=== PATIENT | male | born 1950 | race Caucasian/White ===

== ENCOUNTER 2019-11-29 20:09 | Observation (INO) | payer MEDICARE, OTHER, SELFPAY ==
[2019-11-29] VITALS (13 sets, daily range): BP systolic 90–97; BP diastolic 59–68; PULSE 62–75; RESP 12–22; TEMP 36.7; O2SAT 100
--- NOTE | ~2019-11-29 | XR_ITS ---
XR chest 2V DATE: 11/29/2019 21:30 INDICATION: Transient alteration of awareness. Hypotension. TECHNIQUE: AP and lateral views on 11/29/2019 at 2128 hours COMPARISON: 04/30/2019 AP chest FINDINGS: Status post sternotomy/CABG. Heart size is within normal limits. No pulmonary infiltrate or consolidation, pleural effusion or pulmonary vascular congestion or pneumo thorax. Some right-sided pleural calcifications are again noted. Diffuse osteopenia. IMPRESSION: Status post sternotomy/CABG No active cardiopulmonary disease or significant change since 04/30/2019 Reviewed, dictated and finalized at location A. [facility]CHITECT
--- NOTE | 2019-11-29 20:21 | ECG_ITS ---
Measurements Intervals [place] Rate: 68 P: 75 KS: 193 QRS: 40 QRSD: 104 T: 81 QT: 405 QTc: 433 Interpretive Statements SINUS RHYTHM ANTEROSEPTAL INFARCT, AGE INDETERMINATE BORDERLINE T WAVE ABNORMALITY- INF/LAT LEADS BASELINE ARTIFACT- I, II, V4-V5 ABNORMAL ECG Electronically Signed On 11-30-2019 8:08:04 PC MAINTENANCE TECHNICIAN by Miakel Lim D.O.
[2019-11-29 20:41] LABS: Basophils Absolute Auto 0.1 K/mm3 (0.0-0.1); Basophils Percent Auto 0.8 % (0.2-1.2); Eosinophils Percent Auto 0.5 % (0-4.4); Hemoglobin 11.1 g/dL (14.0-18.0); Immature Granulocyte Absolute 0.04 K/mm3 (0.00-0.031); Immature Granulocyte Percent A 0.5 % (0-0.5); Lymphocytes Absolute Auto 1.36 K/mm3 (0.9-3.2); Lymphocytes Percent Auto 17.1 % (18.3-44.2); Mean Corpuscular HGB Conc 30.8 g/dl (32-36); Mean Corpuscular Hemoglobin 26.4 pg (26-34); Mean Corpuscular Volume 85.5 fl (80-100); Mean Platelet Volume 9.9 fl (7.4-10.4); Monocytes Absolute Auto 0.5 K/mm3 (0.1-0.6); Monocytes Percent Auto 5.8 % (2.6-8.5); Neutrophils Percent Auto 75.3 % (45.5-73.1); Platelet Count Result 478 k/mm3 (150-375); Red Blood Count 4.21 M/mm3 (4.6-6.20); Red Cell Distribution Width 15.3 % (11.5-14.5)
[2019-11-29 20:52] LABS: Alanine Aminotransferase 16 U/L (4-50); Alkaline Phosphatase 90 U/L (38-126); Aspartate Amino Transferase 20 U/L (17-59); Bilirubin,Total 0.3 mg/dL (0.2-1.3); Blood Urea Nitrogen 27 mg/dL (9-20); Calcium 9.8 mg/dL (8.4-10.2); Carbon Dioxide 25 mmol/L (22-30); Chloride 98 mmol/L (98-107); Estimated Glomerular Filt Rate > 60; Glucose 194 mg/dL (75-110); Potassium 5.9 mmol/L (3.4-5.0); Sodium 134 mmol/L (137-145)
--- NOTE | 2019-11-29 20:53 | ED.RECABL ---
HPI - Recheck/Abnormal Lab/Rx General Chief Complaint: Altered Mental Status Stated Complaint: AMS Time Seen by Provider: 11/29/19 20:47 Source: patient, family (daughter) and RN notes reviewed Mode of arrival: EMS Limitations: dementia History of Present Illness HPI narrative: A 69 y/o male presents to the ED via EMS from his AL d/t a low BP beginning today. Per daughter states that her family member saw the pt today and said that he was acting more lethargic, so they called her to have the pt checked up on. She reports that she then called the AL who told her that the pt's BP was 70/40, so they called EMS to have the pt brought here to be evaluated. She notes that the pt has NPH and that the pt is at his baseline now. She also notes that the pt was recently released from [place] d/t a toe infection.The pt states that he was hungry today so he didn't eat. He denies any cough, SOB, CP, ABD pain, N/V/D, back pain, or neck pain. MD complaint: abnormal lab Initial visit (ago): hour(s) (today) Returns today for: called because of abnormal lab/test (low BP) Description of abnormal result: Low BP of 70/40. Context: other (checked bc of increased lethargy) Associated symptoms: other (lethargy and decreased appetite) Related Data Allergies Allergy/AdvReac Type Severity Reaction Status Date / Time No Known Allergies Allergy Unverified 12/10/18 03:13 Review of Systems Review of Systems: Narrative: CONSTITUTIONAL: Reports increased lethargy and decreased appetite. CARDIOVASCULAR: Denies chest pain. Reports low BP of 70/40. RESPIRATORY: Denies cough or dyspnea. GASTROINTESTINAL: Denies abdominal pain, nausea, vomiting, or diarrhea. MUSCULOSKELETAL: Denies back pain or neck pain. All systems reviewed & are unremarkable except as noted in HPI and below [facility] Past Medical History Medical History (Updated 11/30/19 @ 00:25 by Josselyn Cordova MD) Anxiety Arthritis Bulging discs CAD (coronary artery disease) CHF (congestive heart failure) Dementia Depression Diverticulitis DM (diabetes mellitus) GERD (gastroesophageal reflux disease) H/O: HTN (hypertension) History of angina History of kidney stones Hx: UTI (urinary tract infection) Hypercholesteremia Hypothyroid Melanoma Peripheral neuropathy Prostate CA PVD (peripheral vascular disease) Sleep apnea Surgical History Surgical History (Updated 11/29/19 @ 23:06 by Nathan Ash) H/O prostatectomy History of skin graft Hx of CABG Hx of cardiac cath Hx of heart artery stent Social History Social History (Updated 11/29/19 @ 23:07 by Nathan Ash) Smoking packs per day: 0.5 Smoking cigarettes per day: 10.0 Smoking status: Current every day smoker Second hand tobacco smoke exposure: Yes Comments PCP: Dr. Mancera. Exam Narrative: Exam Narrative: GENERAL: Well-appearing, thin, and in no acute distress. HEAD: Normocephalic, atraumatic. EYES: PERRLA and EOMI. ENT: Nares clear, no rhinorrhea or epistaxis. Mucous membranes dry NECK: Supple. CHEST: Clear to auscultation. No respiratory distress. HEART: Regular rate and rhythm. No murmur heard. Normal peripheral pulses. ABDOMEN: Soft, nontender, nondistended, normal active bowel sounds. EXTREMITIES: Normal range of motion. No edema. Dark eschar to lt 5th small toe mild erythema warm and well perfused. DP pulses 2+. SKIN: Warm, dry, no rash. NEURO: No focal deficits. Alert and oriented X2 to persona and place. Course Course Emergency Course: Patient presented for evaluation of hypotension from long-term care facility. Per daughter, patient is acting at baseline. She states he has had decreased oral intake since yesterday. She states these are issues he struggles with chronically. On exam, the patient is alert and oriented at baseline. No focal deficits. He denies any pain. Patient when questioned about why he does not eat or drink much, states he just does not have an appetite for it. He denies any chest or abdominal pain.
[2019-11-29 21:57] LABS: Lactic Acid Reflex 1.3 mmol/L (0.7-2.1)
[2019-11-29] MEDS: SODIUM CHLORIDE 0.9% IV 1,000 ML 999 ML IV CONT (22:13)
[2019-11-29 22:38] LABS: Add Urine Microscopic? YES; Appearance Urine Cloudy (Clear); Bacteria Urine Trace /hpf; Bilirubin Urine Negative (Negative); Color Urine Yellow (Yellow); Glucose Urine UA 1+ mg/dL (Negative); Hyaline Casts Urine 30-49 /lpf; Ketones Urine 1+ mg/dL (Negative); Leukocyte Esterase Ur 2+ LEU/UL (Negative); Mucus Urine Moderate /lpf; Nitrate Urine Negative (Negative); Protein Urine 2+ mg/dL (Negative); Specific Grav Ur 1.023 (1.001-1.035); Squamous Epithelial Cell Urine Rare /hpf (Few); Urobilinogen Urine Negative mg/dL (<2.0); WBC Urine >75 /hpf
[2019-11-29 22:39] LABS: Blood Urine Negative (Negative)
--- NOTE | 2019-11-29 23:08 | PC.NURSE ---
Yoselin, patient's nurse at [facility] calls to get patient update. This nurse informs her of patient status. Yoselin requests to be notified on when patient is discharged or admitted. This nurse informed her that she will be notified when the decision is made.
[2019-11-30] VITALS (8 sets, daily range): BP systolic 98–167; BP diastolic 61–84; PULSE 60–75; RESP 12–16; TEMP 36.2–36.7; O2SAT 97–100; BMI 23.8
--- NOTE | 2019-11-30 00:52 | PM.IMHP ---
H&P: HPI History of Present Illness Chief complaint: Not eating/drinking, confused Narrative: This is a pleasant 69-year-old diabetic male with known history of normal pressure hydrocephalus and chronic suprapubic urinary catheter who is well known to our hospitalist service for multiple hospitalizations and who [facility] the [facility] after being found to be hypotensive with a blood pressure of 70/40 mm Hg and poorly responsive at that time. The patient was just discharged back to the [facility] from [facility] where he was treated for 10 days after he was found to have a necrotic small toe of his left foot. At that time he was found to have a urinary tract infection and received 10 days of IV antibiotics and also was found to have an occluded femoral stent which was replaced. Apparently the patient has not been eating or drinking much today and his daughter states that he is well known to not eat or drink much unless someone is constantly pushing him to eat and drink. She remarks that the nursing staff at the [facility] on the weekends do not pay much attention to him and do not urged him to eat or drink. The patient himself is pleasantly demented and denies any significant symptoms. His daughter remarks that he is currently at his baseline. She did not think that his urine smelled foul today or looked any different than it normally does. The patient was evaluated emergency room this evening and found to have a grossly abnormal urinalysis which is to be expected given that he has a chronic indwelling suprapubic catheter. There is no history of fevers or chills recently. The patient's daughter remarks that his small toe of his left foot appears to be improving with wound care. We been asked to admit the patient to the hospital for acute dehydration and mild hyperkalemia. The patient is currently at his baseline. Review of Systems Review of Systems: All systems reviewed & are unremarkable except as noted in HPI and below [facility] Past Medical History Medical History Anxiety Arthritis Bulging discs CAD (coronary artery disease) CHF (congestive heart failure) Dementia Depression Diverticulitis DM (diabetes mellitus) GERD (gastroesophageal reflux disease) H/O: HTN (hypertension) History of angina History of kidney stones Hx: UTI (urinary tract infection) Hypercholesteremia Hypothyroid Melanoma Peripheral neuropathy Prostate CA PVD (peripheral vascular disease) Sleep apnea Surgical History Surgical History H/O prostatectomy History of skin graft Hx of CABG Hx of cardiac cath Hx of heart artery stent Social History Social History Smoking packs per day: 0.5 Smoking cigarettes per day: 10.0 Smoking status: Former smoker Second hand tobacco smoke exposure: Yes Alcohol intake: unknown Substance use: unknown Gender identity (if verbalized by the patient): Male Spiritual care concerns: No Agree to blood products: No Meds Home Medications and Allergies Home Medications Medication Instructions Recorded Confirmed Type Lactobacillus acidophilus 2,000 mmu cells PO BID 11/30/19 11/30/19 History [Acidophilus] alprazolam 0.25 mg PO HS 11/30/19 11/30/19 History amlodipine 10 mg PO DAILY 11/30/19 11/30/19 History clopidogrel 75 mg PO DAILY 11/30/19 11/30/19 History gabapentin 400 mg PO TID 11/30/19 11/30/19 History metoprolol tartrate 12.5 mg PO DAILY 11/30/19 11/30/19 History polyethylene glycol 3350 [Miralax] 17 g PO DAILY 11/30/19 11/30/19 History tamsulosin [Flomax] 0.4 mg PO DAILY 11/30/19 11/30/19 History white petrolatum [Aloe [place]] 1 applic TOPICAL DAILY 11/30/19 11/30/19 History Allergies Allergy/AdvReac Type Severity Reaction Status Date / Time No Known Allergies Allergy Unverified 12/10/18 0
--- NOTE | 2019-11-30 02:10 | PC.NURSE ---
This nurse calls Yoselin at [facility] to inform Yoselin, patient's nurse that he is being admitted for dehydration and UTI.
[2019-11-30] MEDS: SODIUM CHLORIDE 0.9% IV 1,000 ML 125 ML IV CONT ×2 (03:16→14:13)
--- NOTE | 2019-11-30 03:36 | ADMGEN ---
This patient, Irineo Berrios I, was admitted to [facility] Surg Room 303-01. Patient/family oriented to hospital policies and general routines including ID bracelet, bed and alarms, visiting hours, pain management, procedures, bathroom and other care routines, personal items, smoking policy, room service/diet, and visiting hours. Valuables list has been completed. Information on how to activate the Rapid Response Team has been discussed. Patient/Family are encouraged to report perceived risks to care and to ask questions if they do not understand what they are told or what they should do.
[2019-11-30 03:50] LABS: Basophils Absolute Auto 0.1 K/mm3 (0.0-0.1); Basophils Percent Auto 1.4 % (0.2-1.2); Eosinophils Absolute Auto 0.1 K/mm3 (0-0.3); Eosinophils Percent Auto 2.4 % (0-4.4); Hematocrit 32.2 % (42.0-52.0); Hemoglobin 10.1 g/dL (14.0-18.0); Immature Granulocyte Absolute 0.01 K/mm3 (0.00-0.031); Immature Granulocyte Percent A 0.2 % (0-0.5); Lymphocytes Absolute Auto 1.98 K/mm3 (0.9-3.2); Lymphocytes Percent Auto 33.6 % (18.3-44.2); Mean Corpuscular HGB Conc 31.4 g/dl (32-36); Mean Corpuscular Hemoglobin 26.6 pg (26-34); Mean Corpuscular Volume 84.7 fl (80-100); Mean Platelet Volume 9.6 fl (7.4-10.4); Monocytes Absolute Auto 0.6 K/mm3 (0.1-0.6); Monocytes Percent Auto 9.7 % (2.6-8.5); Neutrophils Absolute Auto 3.1 K/mm3 (1.3-6.7); Neutrophils Percent Auto 52.7 % (45.5-73.1); Platelet Count Result 431 k/mm3 (150-375); Red Cell Distribution Width 15.1 % (11.5-14.5); White Blood Count 5.9 K/mm3 (4.5-10.0)
[2019-11-30 04:00] LABS: Blood Urea Nitrogen 26 mg/dL (9-20); Calcium 9.3 mg/dL (8.4-10.2); Carbon Dioxide 26 mmol/L (22-30); Chloride 99 mmol/L (98-107); Estimated Glomerular Filt Rate > 60; Glucose 120 mg/dL (75-110); Potassium 4.5 mmol/L (3.4-5.0); Sodium 137 mmol/L (137-145)
[2019-11-30] MEDS: ENOXAPARIN 40 MG/0.4 ML SYRINGE SUB-Q (09:01)
[2019-11-30 09:16] LABS: Glucose Point of Care 129 (65-105)
--- NOTE | 2019-11-30 11:00 | PM.IMPN ---
Progress Note: A&P Assessment and Plan (1) Acute dehydration: Code(s): E86.0 - Dehydration Status: Acute Assessment and Plan: Patient admitted for observation for dehydration. Blood pressure is improved. Potassium has normalized. Renal functions unchanged. Suspect this is related to his poor oral intake. Cannot exclude infectious process however. Continue IV fluids for now. (2) Acute hyperkalemia: Code(s): E87.5 - Hyperkalemia Status: Acute Assessment and Plan: The patient was treated with lasix, sodium bicarbonate, dextrose and insulin in the ER. Repeat potassium level normal now. Continue to monitor. (3) Abnormal urinalysis: Code(s): R82.90 - Unspecified abnormal findings in urine Status: Acute Assessment and Plan: UA noted. the patient was just treated for the past 10 days with IV antibiotics for a complicated UTI at [facility]. He received a dose of Ceftriaxone in the ER on admission. Urine culture pending. Antibiotics have not been continued. Follow up culture. 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 Wound care consult ordered. (5) Chronic anemia: Code(s): D64.9 - Anemia, unspecified Status: Acute Assessment and Plan: Hgb 11 on admission. No signs of acute blood loss. Hgb dropped to 10 with IVF. Continue to monitor. (6) DM (diabetes mellitus): Qualifiers: Diabetes mellitus complication detail: with peripheral angiopathy with gangrene Diabetes mellitus complication status: with circulatory complication Diabetes mellitus longterm insulin use: without bed bug exterminator use Diabetes mellitus type: type 2 Qualified Code(s): E11.52 - Type 2 diabetes mellitus with diabetic peripheral angiopathy with gangrene Code(s): E11.9 - Type 2 diabetes mellitus without complications Status: Chronic Assessment and Plan: Glucose reviewed on 11/30/2019. Glucose elevated on admission but better controlled today. Continue Accu-Cheks and sliding scale coverage. Hypoglycemia protocol available as needed. (7) Dementia: Qualifiers: Dementia behavioral disturbance: without behavioral disturbance Dementia type: unspecified type Qualified Code(s): F03.90 - Unspecified dementia without behavioral disturbance Code(s): F03.90 - Unspecified dementia without behavioral disturbance Status: Chronic Assessment and Plan: Stable. The patient is oriented to name only. Currently at his baseline. (8) H/O: HTN (hypertension): Code(s): Z86.79 - Personal history of other diseases of the circulatory system Status: Chronic Assessment and Plan: The patient was relatively hypotensive on admsision which is has been fluid responsive. home anithypertensives on hold. BP better. Add back beta aman. (9) Suprapubic catheter: Code(s): Z93.59 - Other cystostomy status Status: Chronic Assessment and Plan: Chronic. As above. Contiue routine care. Subjective Date/time seen: 11/30/19 11:00 Interval history: 69yo male here for confusion and HoTN. Chart reviewed. Patient is alert but confused and unable to provide history. He does states that his only complaint is tingling in his fingers that he has had ?all the time?. He cannot elaborate. No other complaints. Review of Systems Review of Systems: ROS unobtainable: unobtainable due to mental status Exam Narrative: Exam Narrative: AF Gen - NARD lying flat in bed Chest - CTA bilaterally, nml RR CV - RRR S1/S2 with 2/6 systoolic murmur Abd - Soft, scaphoid, +BS, NT. Slight dark pink area around SP site. SP cath secured with clear yellow urine in the bag Ext - No pedal edema Neuro - Alert but confused. oriented to
[2019-11-30 12:53] LABS: Glucose Point of Care 158 (65-105)
[2019-11-30] MEDS: METOPROLOL TARTRATE 12.5 MG TABLET PO (14:14)
[2019-11-30] MEDS: TAMSULOSIN HCL 0.4 MG CAPSULE PO (14:14)
[2019-11-30] MEDS: polyethylene glycoL 3350 17 GM POWD.PACK PO (14:14)
[2019-11-30] MEDS: CLOPIDOGREL BISULFATE 75 MG TABLET PO (14:15)
[2019-11-30] MEDS: GABAPENTIN 400 MG CAPSULE PO ×2 (14:15→20:10)
[2019-11-30] MEDS: ACIDOPHILUS/BULGARICUS CHEWABLE TABLET 1 TABLET PO (17:23)
[2019-11-30 18:05] LABS: Glucose Point of Care 167 (65-105)
--- NOTE | 2019-11-30 19:55 | PC.NURSE ---
Glenna, patient's daughter, asking about patient's pain medications. Went over med list that was received from [facility]. Glenna states med list is not complete and missing morphine and oxycodone. Called [facility]. Talked to Yoselin and requested new med list.
[2019-11-30] MEDS: ALPRAZOLAM 0.25 MG TABLET PO (20:09)
[2019-11-30] MEDS: ACETAMINOPHEN 325 MG TABLET 650 MG PO (20:09)
[2019-11-30 20:55] LABS: Glucose Point of Care 174 (65-105)
--- NOTE | 2019-12-01 00:57 | PC.NURSE ---
Called [facility] and spoke to Yoselin as this nurse has not received a faxed med list. Facility states they were unable to get it to fax. Requested Yoselin to go through med list for patient over the phone. Multiple medications not on original med list. Corrected home med list. Copy of handwritten med list from phone conversation placed in chart.
[2019-12-01 06:00] VITALS: BP 170/69; PULSE 66; RESP 16; TEMP 36.3; O2SAT 99
[2019-12-01] MEDS: ACETAMINOPHEN 325 MG TABLET 650 MG PO (06:46)
[2019-12-01] MEDS: SODIUM CHLORIDE 0.9% IV 1,000 ML 125 ML IV CONT (06:47)
[2019-12-01] MEDS: GABAPENTIN 400 MG CAPSULE PO ×2 (06:47→16:08)
[2019-12-01 09:03] VITALS: BP 110/63; PULSE 57; RESP 18; O2SAT 100
[2019-12-01] MEDS: ACIDOPHILUS/BULGARICUS CHEWABLE TABLET 1 TABLET PO ×2 (09:08→16:09)
[2019-12-01] MEDS: ASPIRIN 81 MG ENTERIC TABLET PO (09:08)
[2019-12-01] MEDS: ASCORBIC ACID 500 MG TABLET PO (09:08)
[2019-12-01] MEDS: ERGOCALCIFEROL 50,000 UNIT CAPSULE 50000 UNITS PO (09:09)
[2019-12-01] MEDS: CLOPIDOGREL BISULFATE 75 MG TABLET PO (09:09)
[2019-12-01] MEDS: ENOXAPARIN 40 MG/0.4 ML SYRINGE SUB-Q (09:09)
[2019-12-01] MEDS: lisinopriL 10 MG TABLET PO (09:10)
[2019-12-01] MEDS: ISOSORBIDE MONONITRATE 30 MG TAB.ER.24H PO (09:10)
[2019-12-01 09:11] VITALS: PULSE 57
[2019-12-01] MEDS: METOPROLOL TARTRATE 12.5 MG TABLET PO (09:11)
[2019-12-01] MEDS: polyethylene glycoL 3350 17 GM POWD.PACK PO (09:12)
[2019-12-01] MEDS: TAMSULOSIN HCL 0.4 MG CAPSULE PO (09:12)
[2019-12-01] MEDS: MULTIVITAMINS /C LUTEIN (CENTRUM SILVER) TABLET *BKC 1 TAB PO (09:12)
[2019-12-01 09:25] LABS: Glucose Point of Care 124 (65-105)
[2019-12-01] MEDS: SODIUM CHLORIDE 0.9% IV 1,000 ML 70 ML IV CONT (09:27)
[2019-12-01 12:04] VITALS: BMI 23.8
[2019-12-01 12:47] LABS: Glucose Point of Care 161 (65-105)
[2019-12-01 14:00] VITALS: BP 106/63; PULSE 67; RESP 16; TEMP 36.1; O2SAT 100
--- NOTE | 2019-12-01 16:38 | PM.DS ---
DS: Diagnosis Admitting Diagnosis Admitting Diagnosis: Dehydration Discharge Diagnosis (1) Acute dehydration: Code(s): E86.0 - Dehydration Status: Acute Assessment and Plan: Patient admitted for observation for dehydration. Blood pressure 90/59 on admission but improved with IV fluids. The dehydration may be related to his poor oral intake. He seems to do well when he is fed with intake 50-100%. No obvious infectious process. (2) Acute hyperkalemia: Code(s): E87.5 - Hyperkalemia Status: Acute Assessment and Plan: Potassium 5.9 on admission. Probably related to the Bactrim. The patient was treated with lasix, sodium bicarbonate, dextrose and insulin in the ER. Repeat potassium level normallized. Lisinopril resumed given the DM and proteinuria. (3) Abnormal urinalysis: Code(s): R82.90 - Unspecified abnormal findings in urine Status: Acute Assessment and Plan: UA noted. the patient was just treated for the past 10 days with IV antibiotics for a complicated UTI at [facility]. Currently on Bactrim. He received a dose of Ceftriaxone in the ER on admission here. Urine culture negative. 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 We continued wound care. (5) Chronic anemia: Code(s): D64.9 - Anemia, unspecified Status: Acute Assessment and Plan: Hgb 11 on admission. No signs of acute blood loss. Hgb dropped to 10 with IVF. (6) DM (diabetes mellitus): Qualifiers: Diabetes mellitus complication detail: with peripheral angiopathy with gangrene Diabetes mellitus complication status: with circulatory complication Diabetes mellitus detention insulin use: without predatory animal exterminator use Diabetes mellitus type: type 2 Qualified Code(s): E11.52 - Type 2 diabetes mellitus with diabetic peripheral angiopathy with gangrene Code(s): E11.9 - Type 2 diabetes mellitus without complications Status: Chronic Assessment and Plan: Glucose reviewed serially. Glucose elevated on admission but became better controlled. He was on Accu-Cheks and sliding scale coverage. Hypoglycemia protocol available as needed. (7) Dementia: Qualifiers: Dementia behavioral disturbance: without behavioral disturbance Dementia type: unspecified type Qualified Code(s): F03.90 - Unspecified dementia without behavioral disturbance Code(s): F03.90 - Unspecified dementia without behavioral disturbance Status: Chronic Assessment and Plan: Stable. The patient is oriented to name only. Currently at his baseline. (8) H/O: HTN (hypertension): Code(s): Z86.79 - Personal history of other diseases of the circulatory system Status: Chronic Assessment and Plan: The patient was relatively hypotensive on admission which was fluid responsive. Home anithypertensives were held and slowly resumed as blood pressure tolerated. (9) Suprapubic catheter: Code(s): Z93.59 - Other cystostomy status Status: Chronic Assessment and Plan: Chronic. As above. Contiue routine care. DS: Summary Hospital Course Reason for hospitalization: 69yo male here for confusion and hypotension. Please see H&P for details Hospital Course: As above Time Spent with Patient Time attestation: Total time spent providing and/or coordinating discharge services:34 minutes Time spent: Greater than 30 minutes Exam Narrative: Exam Narrative: Gen - NARD lying flat in bed Chest - few basilar rhonchi o/w clear CV - RRR S1/S2 Abd - Soft, scaphoid, +BS, NT. SP cath secured. Ext - No pedal edema Neuro - Alert but confused. Psych - pleasant and cooperative Skin - left 5th dry necrosis; left lateral foot and heel dried wounds but no dinora
[2019-12-01 17:29] LABS: Glucose Point of Care 178 (65-105)
== END 2019-12-01 18:00 ==
LOC: ANHED 11-30 00:25 → ANH3MEDSUR 11-30 00:57
PROVIDERS: Emergency Medicine; Admitting Provider Family Medicine; Emergency Provider Emergency Medicine; PCP Family Medicine; Visit Provider Internal Medicine
DX: E86.0 Dehydration (principal); E87.5 Hyperkalemia; R82.90 Unspecified abnormal findings in urine; E11.52 Type 2 diabetes mellitus with diabetic peripheral angiopathy with gangrene; I96 Gangrene, not elsewhere classified; E11.42 Type 2 diabetes mellitus with diabetic polyneuropathy; D64.9 Anemia, unspecified; F03.90 Unspecified dementia, unspecified severity, without behavioral disturbance, psychotic disturbance, mood disturbance, and anxiety; I11.0 Hypertensive heart disease with heart failure; I50.9 Heart failure, unspecified; I95.9 Hypotension, unspecified; I25.10 Atherosclerotic heart disease of native coronary artery without angina pectoris; K21.9 Gastro-esophageal reflux disease without esophagitis; G91.2 (Idiopathic) normal pressure hydrocephalus; E78.00 Pure hypercholesterolemia, unspecified; E03.9 Hypothyroidism, unspecified; Z85.46 Personal history of malignant neoplasm of prostate; Z85.820 Personal history of malignant melanoma of skin; Z87.440 Personal history of urinary (tract) infections; Z87.891 Personal history of nicotine dependence; Z93.59 Other cystostomy status; Z95.1 Presence of aortocoronary bypass graft; Z95.5 Presence of coronary angioplasty implant and graft
CPT/HCPCS: 36415; 71046; 80048; 80053; 81001; 83605; 85025; 87081; 87086; 93005; 96361; 96365; 96372; 99285; A9270; G0378; J0696; J1650; J7030

== ENCOUNTER 2020-01-15 09:26 | Inpatient (IN) | payer MEDICARE, SELFPAY ==
[2020-01-15] VITALS (13 sets, daily range): BP systolic 125–168; BP diastolic 45–86; PULSE 81–106; RESP 15–24; TEMP 36.3–37.3; O2SAT 97–100
--- NOTE | ~2020-01-15 | XR_ITS ---
EXAMINATION: XR fluoroscopy no charge DATE: 01/15/2020 16:35 INDICATION: Hematuria. TECHNIQUE: A single intraoperative fluoroscopic view of the pelvis was obtained. I was not present. F luoroscopy exposure time was 34 seconds. COMPARISON: CT abdomen and pelvis 01/15/2020 FINDINGS: The single image demonstrates a catheter and wire in the bladder. Vascular calcifications o verlie the pelvis. IMPRESSION: 1. No urolithiasis. Reviewed, dictated and finalized at location A. IMPRESSION: 1. No urolithiasis.
--- NOTE | ~2020-01-15 | US_ITS ---
EXAMINATION: US renal BI DATE: 01/16/2020 11:32 INDICATION: Hydronephrosis TECHNIQUE: Multiple grayscale and Doppler ultrasound images of the kidneys were obtained. COMPARISON: None. FINDINGS: The right kidney measures 11.2 x 6.4 cm. The left kidney measures 11.1 x 5.3 x 6.5 cm. The kidneys demonstrate normal parenchymal echogenicity. There is no hydronephrosis. The bladder is decom pressed by a Fuentes catheter. IMPRESSION: 1. Normal kidneys without hydronephrosis. Decompressed bladder. Reviewed, dictated and finalized at location B.
--- NOTE | ~2020-01-15 | CT_ITS ---
EXAMINATION: CT abdomen pelvis wo con DATE: 01/15/2020 11:09 INDICATION: Bleeding from suprapubic catheter site. TECHNIQUE: Computed tomography (CT) of the abdomen and pelvis was performed without intravenous contr ast. Automated exposure control and iterative reconstruction technique were employed. The dose-length product was 788.53 mGy-cm. COMPARISON: 12/10/2018 FINDINGS: Round atelectasis to the periphery of the right lower lobe where there is a likely chronic small exud ative pleural effusion with peripheral partially calcified pleural thickening involving both the konstantin etal and visceral pleura. Additional mild scarring at the lingula. Left lower lobe pneumatocele. Bord hal heart size. Atherosclerotic coronary artery calcifications with change of prior median sternot arturo and coronary artery bypass grafting. Aortic valve and mitral annular calcification. No pericardia l effusion. Liver, gallbladder, pancreas and bilateral adrenal glands are normal. A few small splenic calcificati ons consistent with old granulomatous disease. 8 mm parapelvic cyst at the upper pole of the left kid catie. Large amount of stool scattered throughout the colon which could be seen with constipation. Scat tered diverticula predominantly along the sigmoid colon without adjacent inflammatory change to sugge st acute diverticulitis. No bowel obstruction. Normal appendix. There is extensive calcified atherosc lerosis of the aorta and many of the other arteries. Again seen is a mildly enlarged 12 x 12 mm left internal iliac chain lymph node. No other pathologically enlarged abdominal or pelvic lymphadenopathy . Mild to moderate degenerative skeletal changes in the spine and pelvis. Age-indeterminate mild supe rior endplate compression fracture along the right side of the L4 vertebral body. New suprapubic Fuentes catheter within the mildly distended bladder. Again seen is heterogeneous high a ttenuation material within the bladder lumen consistent with clot. Moderate bilateral hydroureteronep hrosis which extends to the bladder with no evident obstructing urolithiasis. Persistent mild bilater al perinephric stranding. There is additional increased extraperitoneal edema in the pelvis surroundi ng the bladder and rectum. Cannot exclude a minimal amount of ascites in the pelvis. No abscess or fr ee intraperitoneal gas. The previously seen prominent bladder wall thickening has decreased. Status p ost prostatectomy. The prior penile prosthesis has been removed. IMPRESSION: 1. Large amount of high attenuation material within the bladder along side a suprapubic Fuentes cathete r bulb. This most likely represents clot although underlying urothelial malignancy is not excludable. 2. Mild to moderate bilateral hydroureteronephrosis likely related to obstruction at the level of the bladder. 3. Unchanged mildly enlarged left internal iliac chain lymph node which given the lack of significant interval growth favors reactive lymph node over metastatic disease. 4. Stable appearance of a small likely chronic right pleural effusion with associated calcified pleur al plaque and right lower lobar round atelectasis. 5. Diverticulosis. Reviewed, dictated and finalized at location A. IMPRESSION: 1. Large amount of high attenuation material within the bladder along side a stearns prapubic Fuentes catheter bulb. This most likely represents clot although underly ing urothelial malignancy is not excludable. 2. Mild to moderate bilateral hydroureteronephrosis likely related to obstructi on at the level of the bladder. 3. Unchanged mildly enlarged left internal iliac chain lymph node which given t he lack of significant interval growth favors reactive lymph node over metastat ic disease. 4. Stable appearance of a small likely chroni
--- NOTE | 2020-01-15 09:29 | ED.MALEGU ---
HPI - Male Genitourinary General Chief complaint: Urogenital-Male Stated complaint: bleeding from cath site Source: patient, family (daughter) and other (half-way) Mode of arrival: EMS Limitations: dementia History of Present Illness HPI Narrative: Patient presents with chief complaint of bleeding from his suprapubic catheter site. Patient's urologist is Dr. Horner at [facility]. The half-way attempted to change out patient suprapubic catheter at midnight and has noticed bleeding from around the insertion site. They report it is normal for the patient to occasionally has some clots pass into the bag, but he does not generally have bleeding from around the site. Patient has dementia and is aware of self, place, and vaguely regarding situation, which is his baseline. Patient is on Plavix 75 mg daily. Patient states he is noting discomfort to the area. Patients daughter has joined him in the ED to help give history and information. Daughter reports that patient normally lays on his right side as he is becoming more contracted and that is his most comfortable position. They deny the patient having any other symptoms or signs of illness such as fever, cough, nausea, vomiting. Related Data Home Medications Medication Instructions Recorded Confirmed Lactobacillus acidophilus 2,000 mmu cells PO BID 11/30/19 11/30/19 [Acidophilus] alprazolam 0.25 mg PO HS 11/30/19 11/30/19 clopidogrel 75 mg PO DAILY 11/30/19 11/30/19 gabapentin 400 mg PO TID 11/30/19 11/30/19 metoprolol tartrate 12.5 mg PO DAILY 11/30/19 11/30/19 polyethylene glycol 3350 [Miralax] 17 g PO DAILY PRN 11/30/19 11/30/19 tamsulosin [Flomax] 0.4 mg PO DAILY 11/30/19 11/30/19 Aloe Myra Antifungal (micon) 1 applic TOPICAL DAILY 12/01/19 12/01/19 Complete Multivitamin-Mineral 1 tablet PO DAILY 12/01/19 12/01/19 Levemir FlexTouch U-100 Insuln 10 unit SUBCUT HS 12/01/19 12/01/19 acetaminophen [Tylenol] 650 mg PO ONCE PRN 12/01/19 12/01/19 ascorbic acid (vitamin C) 500 mg PO DAILY 12/01/19 12/01/19 aspirin [Adult Low Dose Aspirin] 81 mg PO DAILY 12/01/19 12/01/19 atorvastatin 40 mg PO HS 12/01/19 12/01/19 cholecalciferol (vitamin D3) 50,000 unit PO WEEKLY 12/01/19 12/01/19 isosorbide mononitrate 30 mg PO DAILY 12/01/19 12/01/19 levothyroxine 150 mcg PO DAILY 12/01/19 12/01/19 lisinopril 10 mg PO DAILY 12/01/19 12/01/19 loperamide 2 mg PO Q4H PRN 12/01/19 12/01/19 methenamine hippurate 1 g PO BID 12/01/19 12/01/19 morphine 10 mg PO Q12H 12/01/19 12/01/19 Allergies Allergy/AdvReac Type Severity Reaction Status Date / Time No Known Allergies Allergy Unverified 12/10/18 03:13 Review of Systems Review of Systems: Narrative: CONSTITUTIONAL: Denies fever, chills, or sweats. EYES: Denies visual changes, redness, or discharge. ENT: Denies rhinorrhea, congestion, sore throat, or otalgia. CARDIOVASCULAR: Denies chest pain, palpitations, or edema. RESPIRATORY: Denies cough or dyspnea. GASTROINTESTINAL: Denies abdominal pain, nausea, vomiting, or diarrhea. GENITOURINARY: Reports bleeding from suprapubic site, catheter not draining SKIN: Denies rash or itching. MUSCULOSKELETAL: Denies back pain, joint pain, or myalgia. NEUROLOGIC: Denies headache, numbness, dizziness, or weakness. PSYCHIATRIC: Denies anxiety or depression. [facility] Social History Social History Smoking packs per day: 0.5 Smoking cigarettes per day: 10.0 Smoking status: Former smoker Second hand tobacco smoke exposure: Yes Alcohol intake: unknown Substance use: unknown Gender identity (if verbalized by the patient): Male Spiritual care concerns: No Agree to blood products: No Exam Narrative: Exam Narrative: GENERAL: Elderly and frail with contracted upper and lower extremities- baseline. HEAD: Normocephalic, atraumatic.old well healed Scar noted to left frontal region. EYES: PERRLA and EOMI. CHEST: Clear to auscultation. No respirat
[2020-01-15] MEDS: LACTATED RINGERS 1,000 ML 30 ML IV CONT ×2 (12:25→16:40)
--- NOTE | 2020-01-15 12:55 | SUR.PREOP ---
1210-ARRIVED PER STRETCHER, DAUGHTER WITH PT. PT. ORIENTED X1. FERNANDEZ IN PLACE, DARK RED URINE NOTED, SOME BLOODY DRAINAGE NOTED AROUND MEATUS.
--- NOTE | 2020-01-15 13:18 | PM.IMHP ---
H&P: HPI History of Present Illness Chief complaint: bleeding from cath site Narrative: Irineo Berrios I is a 69 year old male Who has a history of having prostate cancer status post prostatectomy and the suprapubic catheter. Patient typically sees a urologist is through [facility] Dr. Mcintosh. According to his daughter the patient has problems clotting off a couple times a year and will go to [facility] and get a CBI. This usually resolves the patient's problems. Occasionally the area around the suprapubic catheter will bleed small amount. The patient is from [address] [facility] attempted to change out his suprapubic catheter at midnight and they notice bleeding around the insertion site. According to the staff the patient was at his baseline he is orientated to self and place. He is chronically on Plavix. He is diabetic and has vasculopathy. The patient recently received a femoral stent to the left leg. The patient has a chronic foot ulcer to the left small toe and the heel. He has necrotic tissue to the left small toe. They have been treating it conservatively at the [facility]. Patient is a DNR and is going to go to hospice through [facility]. CT of the abdomen was read by radiology is large amount of high attenuation material within the bladder along with a suprapubic Fuentes catheter bone. It is likely represents clot on the underlying urothelial malignancy not excludable. Mild to moderate bilateral hydroureteronephrosis likely related to obstruction at the level of bladder. Unchanged mild enlarged left internal iliac chain lymph node which given the lack of significant interval growth favors reactive lymph node over metastatic disease. Stable appearance of a small likely chronic right pleural effusion with associated calcified pleural plaque and right lower lobe atelectasis. Diverticulosis. Nursing tried to irrigate the catheter, to expand balloon, into advance to make sure that the catheter was within the bladder but was not getting any urine return. A 3 way catheter was placed and was not able to be irrigated. There were many blood clots noted. The patient appeared to be comfortable at the time. Evangelista mayes was notified and is going for cystoscopy this afternoon. Patient is currently in preop area. Date of service is 01/15/2020 Review of Systems Review of Systems: Narrative: The daughter Yohana is answering the questions for me. The patient has dementia and is unable to answer the questions at this time. The daughter stated that the patient is on high doses of OxyContin for chronic back pain. According to the daughter the patient is supposed to go to hospice today through [facility]. All systems reviewed & are unremarkable except as noted in HPI and below ROS unobtainable: Yes unobtainable due to mental status Constitutional: Constitutional: Reports as per HPI and Reports no additional constitutional complaints Eyes: Eyes: Reports as per HPI and Reports no additional eye complaints ENT: Reports system reviewed and no additional complaints, except as documented and Reports Normal hearing present Cardiovascular: Cardiovascular: Reports no additional cardiovascular complaints Respiratory: Respiratory: Reports no additional respiratory complaints and Reports no additional respiratory complaints Gastrointestinal: Gastrointestinal: Reports as per HPI and Reports no additional gastrointestinal complaints Musculoskeletal: Musculoskeletal: Reports no additional musculoskeletal complaints Integumentary/Breasts: Skin/Breast: Reports system reviewed and no additional complaints, except as docu and Reports as per HPI Neurologic: Reports system reviewed and no additional complaints, except as documented, Reports as per HPI and Reports Normal hearing present Psychiatric: Psychiatric: Reports no additional psychiatric complaints and Reports as per HPI Endocrine: Endocrine: Reports no additional endocrine c
--- NOTE | 2020-01-15 13:58 | WPDANESEPPF ---
Anes - Initial Pre Proc Eval Procedure: Operation Date: 01/15/20 15:30 Proposed Procedures p Cystoscopy, Evacuation Bladder Clots - Joby Madsen MD Date/Time: 01/15/20 13:58 Surgeon: Jorge Calabrese MD Pre Op Diagnosis: bleeding from cath site Patient Data Age: 69 Gender: M Height: Weight: 65.8 kg Last Vital Signs Temp 37.0 C 01/15/20 09:31 Pulse 84 01/15/20 12:06 Resp 17 01/15/20 12:06 BP 140/71 01/15/20 12:06 Pulse Ox 100 01/15/20 12:06 Allergies Allergy/AdvReac Type Severity Reaction Status Date / Time No Known Allergies Allergy Unverified 01/15/20 12:29 Home Medications Medication Instructions Recorded Confirmed Type Lactobacillus acidophilus 2,000 mmu cells PO BID 11/30/19 11/30/19 History [Acidophilus] alprazolam 0.25 mg PO HS 11/30/19 11/30/19 History clopidogrel 75 mg PO DAILY 11/30/19 11/30/19 History gabapentin 400 mg PO TID 11/30/19 11/30/19 History metoprolol tartrate 12.5 mg PO DAILY 11/30/19 11/30/19 History polyethylene glycol 3350 [Miralax] 17 g PO DAILY PRN 11/30/19 11/30/19 History tamsulosin [Flomax] 0.4 mg PO DAILY 11/30/19 11/30/19 History Aloe [place] Antifungal (micon) 1 applic TOPICAL DAILY 12/01/19 12/01/19 History Complete Multivitamin-Mineral 1 tablet PO DAILY 12/01/19 12/01/19 History Levemir FlexTouch U-100 Insuln 10 unit SUBCUT HS 12/01/19 12/01/19 History acetaminophen [Tylenol] 650 mg PO ONCE PRN 12/01/19 12/01/19 History ascorbic acid (vitamin C) 500 mg PO DAILY 12/01/19 12/01/19 History aspirin [Adult Low Dose Aspirin] 81 mg PO DAILY 12/01/19 12/01/19 History atorvastatin 40 mg PO HS 12/01/19 12/01/19 History cholecalciferol (vitamin D3) 50,000 unit PO WEEKLY 12/01/19 12/01/19 History hydrocodone-acetaminophen [[place]] 1 tablet PO 1200 #10 tablet 12/01/19 Rx hydrocodone-acetaminophen [[place]] 1 tablet PO Q6H PRN #10 tablet 12/01/19 Rx isosorbide mononitrate 30 mg PO DAILY 12/01/19 12/01/19 History levothyroxine 150 mcg PO DAILY 12/01/19 12/01/19 History lisinopril 10 mg PO DAILY 12/01/19 12/01/19 History loperamide 2 mg PO Q4H PRN 12/01/19 12/01/19 History methenamine hippurate 1 g PO BID 12/01/19 12/01/19 History morphine 10 mg PO Q12H 12/01/19 12/01/19 History Patient hx anesthesia problems: none Family hx anesthesia problems: none PMFSH Past Medical History Medical History Anxiety Arthritis Bulging discs CAD (coronary artery disease) Triple bypass 6 cardiac stents CHF (congestive heart failure) Chronic pain Dementia Depression Diverticulitis DM (diabetes mellitus) GERD (gastroesophageal reflux disease) H/O: HTN (hypertension) History of angina History of kidney stones HTN (hypertension), malignant Hx: UTI (urinary tract infection) Hypercholesteremia Hypothyroid Melanoma The top of his head with removal and extensive skin graft Peripheral neuropathy Prostate CA Treated with prostatectomy and radiation PVD (peripheral vascular disease) History of fem-pop bypass bilaterally Sleep apnea Surgical History Surgical History H/O prostatectomy History of skin graft The top of his head due to melanoma Hx of CABG Triple bypass Hx of cardiac cath 6 cardiac stents Hx of heart artery stent Family History Family History Mother Hypertension Dementia Sibling Metastatic cancer Father due to natural causes Social History Social History Social History: The patient has 1 daughter Glenna. He is . [facility] 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 Patient is a DNR. His daughter is the power health care attorney. Patient quit smoking approximately 1 and half to 2 years ago. Smoking packs per day: 0.5 Smoking cigarettes per day: 10.0 Smoking status: Former smo
[2020-01-15] MEDS: ceFAZolin 2 GM/D5W 50 ML 2 GM/50 ML BAG IVPB (15:33)
--- NOTE | 2020-01-15 15:49 | PM.IMHP ---
H&P: HPI History of Present Illness Chief complaint: bleeding from cath site Narrative: Irineo Berrios is a 69 year old male, previously unknown to our practice, who's unable to supply a history but his daughter is present for consultation. In the past (exact timing unknown) he's had a radical prostatecomy, adjuvant pelvic radiation therapy, placement of a penile prosthesis (with subsequent removal), placement of a male sling and placement of a suprapubic catheter - all at [facility]. Then, with onset of recurrent hematuria they decide to come to [facility]. I have no outside records. Best I can tell, the s/p catheter was placed due to recurrent UTI's. Review of Systems Review of Systems: ROS unobtainable: Yes unobtainable due to mental status PMFSH Past Medical History Medical History Anxiety Arthritis Bulging discs CAD (coronary artery disease) Triple bypass 6 cardiac stents CHF (congestive heart failure) Chronic pain Dementia Depression Diverticulitis DM (diabetes mellitus) GERD (gastroesophageal reflux disease) H/O: HTN (hypertension) History of angina History of kidney stones HTN (hypertension), malignant Hx: UTI (urinary tract infection) Hypercholesteremia Hypothyroid Melanoma The top of his head with removal and extensive skin graft Peripheral neuropathy Prostate CA Treated with prostatectomy and radiation PVD (peripheral vascular disease) History of fem-pop bypass bilaterally Sleep apnea Surgical History Surgical History H/O prostatectomy History of skin graft The top of his head due to melanoma Hx of CABG Triple bypass Hx of cardiac cath 6 cardiac stents Hx of heart artery stent Family History Family History Mother Hypertension Dementia Sibling Metastatic cancer Father due to natural causes Social History Social History Social History: The patient has 1 daughter Glenna. He is . Resides at [facility]. 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 Patient is a DNR. His daughter is the power assistant prosecuting attorney. Patient quit smoking approximately 1 and half to 2 years ago. Smoking packs per day: 0.5 Smoking cigarettes per day: 10.0 Smoking status: Former smoker Second hand tobacco smoke exposure: Yes Alcohol intake: never Substance use: never Living arrangements: halfway Occupation/Education: retired Gender identity (if verbalized by the patient): Male Spiritual care concerns: No Agree to blood products: No Meds Home Medications and Allergies Home Medications Medication Instructions Recorded Confirmed Type Lactobacillus acidophilus 2,000 mmu cells PO BID 11/30/19 11/30/19 History [Acidophilus] alprazolam 0.25 mg PO HS 11/30/19 11/30/19 History clopidogrel 75 mg PO DAILY 11/30/19 11/30/19 History gabapentin 400 mg PO TID 11/30/19 11/30/19 History metoprolol tartrate 12.5 mg PO DAILY 11/30/19 11/30/19 History polyethylene glycol 3350 [Miralax] 17 g PO DAILY PRN 11/30/19 11/30/19 History tamsulosin [Flomax] 0.4 mg PO DAILY 11/30/19 11/30/19 History Aloe [place] Antifungal (micon) 1 applic TOPICAL DAILY 12/01/19 12/01/19 History Complete Multivitamin-Mineral 1 tablet PO DAILY 12/01/19 12/01/19 History Levemir FlexTouch U-100 Insuln 10 unit SUBCUT HS 12/01/19 12/01/19 History acetaminophen [Tylenol] 650 mg PO ONCE PRN 12/01/19 12/01/19 History ascorbic acid (vitamin C) 500 mg PO DAILY 12/01/19 12/01/19 History aspirin [Adult Low Dose Aspirin] 81 mg PO DAILY 12/01/19 12/01/19 History atorvastatin 40 mg PO HS 12/01/19 12/01/19 History cholecalciferol (vitamin D3) 50,000 unit PO WEEKLY 12/01/19 12/01/19 History hydrocodone-acetaminophen [[place]] 1 tablet PO 1200 #10 tablet 12/01/19 Rx hydrocodone-ac
[2020-01-15] MEDS: LIDOCAINE HCL 2% GEL UROJET 10 ML PKG MUCOUS MEM (16:00)
--- NOTE | 2020-01-15 16:41 | PM.PROC ---
Procedure Note - Detailed Date of procedure: 01/15/20 Pre-op diagnosis: bleeding from cath site Post-op diagnosis: same Procedure performed: 1. Cysto/urethral dilataton. 2. Clot evacuation. Description of procedure: All start this operative note by saying that this could urinary tract is of mess. He is status post radical prostatectomy followed by pelvic radiation with subsequent male sling placement, inflatable penile prosthesis placement and suprapubic catheter placement, all at an outside facility. He has had a suprapubic catheter for nearly a year, being placed probably for for management of recurrent urinary tract infections. He was admitted to the ER with gross hematuria and imaging studies suggested significant clot retention. I first performed flexible urethroscopy with a 16 F flexible cystoscope. His male sling masses extruding in a wide-based fashion into the bulbous and mid urethra. He also has extensive stricture disease of the urethra. With some considerable effort I was able to get a 0.035 glidewire into the bladder and dilate all the strictures to 28 F with Amplatz dilators over a superstiff wire. I then placed a 24 F resectoscope and evacuated a large, apparently very old clot. Bladder was then inspected with a 20 F rigid cystoscope. There is hyperemia of the mucosa consistent with cystitis. The suprapubic catheter is in good position. Patient has no bilateral hydronephrosis but I was unable identify the ureteral orifices. This point the cystoscope was removed and I placed a 20 F [place] tip catheter. We will keep him on continuous bladder irrigation overnight. Anesthesia: GLMA Surgeon: Joby Madsen MD Estimated blood loss (mL): 50 Drains: Yes (18F s/p catheter and 20F urethral catheter) Packing: No Pathology: none sent Complications: No immediate complications Condition: stable Disposition: PACU
[2020-01-15 17:03] LABS: Glucose Point of Care 180 (65-105)
--- NOTE | 2020-01-15 18:02 | PC.NURSE ---
This patient, Irineo Berrios, was admitted to 3 [facility] Surg Room 302-01. Patient/family oriented to hospital policies and general routines including ID bracelet, bed and alarms, visiting hours, pain management, procedures, bathroom and other care routines, personal items, smoking policy, room service/diet, and visiting hours. Valuables list has been completed. Information on how to activate the Rapid Response Team has been discussed. Patient/Family are encouraged to report perceived risks to care and to ask questions if they do not understand what they are told or what they should do.
[2020-01-15] MEDS: ATORVASTATIN 40 MG TABLET PO (21:34)
[2020-01-15] MEDS: ACIDOPHILUS/BULGARICUS CHEWABLE TABLET 1 TABLET PO (21:34)
[2020-01-15] MEDS: BACLOFEN 5 MG TABLET PO (21:34)
[2020-01-15] MEDS: METOPROLOL TARTRATE 12.5 MG TABLET PO (21:35)
[2020-01-15] MEDS: GABAPENTIN 300 MG CAPSULE 600 MG PO (21:36)
[2020-01-15] MEDS: INSULIN DETEMIR 100 UNITS/ML 10 UNITS SUB-Q (21:39)
[2020-01-15 23:55] LABS: Glucose Point of Care 232 (65-105)
[2020-01-16] MEDS: GABAPENTIN 300 MG CAPSULE 600 MG PO ×3 (05:40→21:11)
[2020-01-16] MEDS: LEVOTHYROXINE SODIUM 150 MCG TABLET PO (05:41)
[2020-01-16 06:13] LABS: Basophils Absolute Auto 0.1 K/mm3 (0.0-0.1); Basophils Percent Auto 0.4 % (0.2-1.2); Eosinophils Percent Auto 0.3 % (0-4.4); Hematocrit 26.6 % (42.0-52.0); Hemoglobin 8.5 g/dL (14.0-18.0); Immature Granulocyte Absolute 0.09 K/mm3 (0.00-0.031); Immature Granulocyte Percent A 0.6 % (0-0.5); Lymphocytes Absolute Auto 1.49 K/mm3 (0.9-3.2); Lymphocytes Percent Auto 9.8 % (18.3-44.2); Mean Corpuscular Hemoglobin 26.4 pg (26-34); Mean Corpuscular Volume 82.6 fl (80-100); Mean Platelet Volume 9.8 fl (7.4-10.4); Monocytes Percent Auto 6.4 % (2.6-8.5); Neutrophils Absolute Auto 12.6 K/mm3 (1.3-6.7); Neutrophils Percent Auto 82.5 % (45.5-73.1); Platelet Count Result 543 k/mm3 (150-375); Red Blood Count 3.22 M/mm3 (4.6-6.20); Red Cell Distribution Width 13.8 % (11.5-14.5); White Blood Count 15.3 K/mm3 (4.5-10.0)
[2020-01-16 06:15] VITALS: BP 141/62; PULSE 88; RESP 16; TEMP 37.4; O2SAT 100
[2020-01-16 06:29] LABS: Alanine Aminotransferase 11 U/L (4-50); Alkaline Phosphatase 88 U/L (38-126); Aspartate Amino Transferase 23 U/L (17-59); Bilirubin,Total 0.3 mg/dL (0.2-1.3); Blood Urea Nitrogen 16 mg/dL (9-20); Calcium 8.8 mg/dL (8.4-10.2); Carbon Dioxide 31 mmol/L (22-30); Chloride 100 mmol/L (98-107); Estimated Glomerular Filt Rate > 60; Glucose 117 mg/dL (75-110); Magnesium 1.8 mg/dL (1.6-2.3); Potassium 4.4 mmol/L (3.4-5.0); Sodium 133 mmol/L (137-145)
[2020-01-16 06:45] LABS: Glucose Point of Care 119 (65-105)
--- NOTE | 2020-01-16 07:33 | WPDUROPN2 ---
Progress Note: A&P Assessment and Plan (1) Dementia: Qualifiers: Dementia type: unspecified type Dementia behavioral disturbance: without behavioral disturbance Qualified Code(s): F03.90 - Unspecified dementia without behavioral disturbance Code(s): F03.90 - Unspecified dementia without behavioral disturbance Status: Chronic (2) Prostate CA: Code(s): C61 - Malignant neoplasm of prostate Status: Chronic (3) Suprapubic catheter: Code(s): Z93.59 - Other cystostomy status Status: Chronic (4) Gross hematuria: Code(s): R31.0 - Gross hematuria Status: Acute (5) Hydronephrosis: Code(s): N13.30 - Unspecified hydronephrosis Status: Acute Assessment and Plan: Cystoscopy, clot evacuation today (with evaluation of gross hematuria). Bilat. hydronephrosis - new since last CT here ~1-year ago. Suspect this may be due to acute retention. 01/16/2020 Urine clear on slow CBI Anticipated plan: - continue CBI today / likely off Sunday if urine remains clear. - remove urethral catheter 24-hours later if urine remains clear. - discharge Sunday/Sunday with indwelling suprapubic catheter and resumption of home health monthly changes. - culture-directed abx. for probably UTI. Subjective Subjective Date/Time Seen: 01/16/20 07:33 Chronic suprapubic catheter Hematuria likely due to hemorrhagic cystitis Review of Systems Review of Systems: ROS unobtainable: Yes unobtainable due to mental status Exam Resp: Effort & Inspection: normal respiratory effort GI: Inspection: non-distended : Male General Exam: Yes normal external exam Urinary Catheter: Urinary Catheter: patent and draining and urine clear Objective Data Vital Signs Vital Signs: Vital Signs - 24 hr 01/15/20 09:31 01/15/20 11:51 01/15/20 12:06 Temperature 98.6 F Pulse Rate 81 82 84 Respiratory Rate 15 16 17 Blood Pressure 125/60 128/67 140/71 Pulse Oximetry 98 97 100 01/15/20 16:40 01/15/20 16:55 01/15/20 17:10 Temperature 99.2 F Pulse Rate 94 92 89 Respiratory Rate 17 22 H 20 Blood Pressure 155/45 H 140/62 149/79 H Pulse Oximetry 100 100 97 01/15/20 17:25 01/15/20 17:39 01/15/20 17:50 Temperature 98.2 F 97.9 F Pulse Rate 90 87 90 Respiratory Rate 24 H 24 H 16 Blood Pressure 135/74 153/79 H 165/72 H Pulse Oximetry 100 99 98 01/15/20 18:05 01/15/20 18:35 01/15/20 19:35 Temperature 97.8 F 97.9 F 97.4 F L Pulse Rate 95 98 106 H Respiratory Rate 16 16 16 Blood Pressure 146/71 H 168/66 H 136/86 Pulse Oximetry 98 98 97 01/15/20 21:35 01/16/20 06:15 Temperature 99.4 F Pulse Rate 99 88 Respiratory Rate 16 Blood Pressure 141/62 H Pulse Oximetry 100 Intake/Output Intake/Output: Intake & Output 01/13/20 01/14/20 01/15/20 01/16/20 23:59 23:59 23:59 23:59 Intake Total 3100 Output Total 4425 Balance -1325 Meds/Results Medications: Active Medications Generic Name Dose Route Start Last Admin Trade Name Freq PRN Reason Stop Dose Admin Acetaminophen 650 mg 01/15/20 19:29 Tylenol Tablet PO ONCE PRN Pain (Scale Score 1-3) Hydrocodone Bitart/Acetaminophen 1 tab 01/15/20 19:29 [place] 5-325 Mg PO Q6H PRN Breakthrough Pain Alprazolam 0.125 mg 01/15/20 21:00 01/15/20 21:33 Xanax PO 0.125 mg HS JES Administration Ascorbic Acid 500 mg 01/16/20 09:00 Vitamin C PO DAILY [facility] Aspirin 81 mg 01/16/20 09:00 Aspirin Ec PO DAILY [facility] Atorvastatin Calcium 40 mg 01/15/20 21:00 01/15/20 21:34 Lipitor PO 40 mg HS JES Administration Baclofen 5 mg 01/15/20 21:00 01/15/20 21:34 Lioresal Po PO 5 mg Q12HR JES Administration Clopidogrel Bisulfate 75 mg 01/16/20 09:00 Plavix PO DAILY [facility] Dextrose 12.5 gm 01/15/20 13:04 Dextrose 50% Syringe IV PUSH PRN PRN Hypoglycemia Protocol Ergocalciferol 50,
[2020-01-16 09:43] LABS: Glucose Point of Care 138 (65-105)
[2020-01-16] MEDS: ASCORBIC ACID 500 MG TABLET PO (09:47)
[2020-01-16] MEDS: ACIDOPHILUS/BULGARICUS CHEWABLE TABLET 1 TABLET PO ×2 (09:47→20:20)
[2020-01-16] MEDS: ISOSORBIDE MONONITRATE 30 MG TAB.ER.24H PO (09:48)
[2020-01-16] MEDS: CLOPIDOGREL BISULFATE 75 MG TABLET PO (09:48)
[2020-01-16] MEDS: lisinopriL 10 MG TABLET PO (09:48)
[2020-01-16] MEDS: BACLOFEN 5 MG TABLET PO ×2 (09:48→20:20)
[2020-01-16] MEDS: TAMSULOSIN HCL 0.4 MG CAPSULE PO (09:49)
[2020-01-16] MEDS: MULTIVITAMINS /C LUTEIN (CENTRUM SILVER) TABLET *BKC 1 TAB PO (09:49)
[2020-01-16] MEDS: ASPIRIN 81 MG ENTERIC TABLET PO (09:50)
[2020-01-16 12:37] LABS: Glucose Point of Care 184 (65-105)
[2020-01-16 14:07] VITALS: BP 105/47; PULSE 93; RESP 16; TEMP 37.3; O2SAT 97
--- NOTE | 2020-01-16 15:25 | PM.IMPN ---
Progress Note: A&P Assessment and Plan (1) Hematoma of bladder wall: Qualifiers: Encounter type: initial encounter Qualified Code(s): S37.22XA - Contusion of bladder, initial encounter Code(s): S37.22XA - Contusion of bladder, initial encounter Status: Acute Assessment and Plan: Dr. mayes has seen the patient and took for cystoscopy 01/14 where clot was extracted. The patient has a chronic suprapubic catheter secondary to a prostatectomy due to history of prostate cancer. Urology to continue CBI for the next 24-72 hours and probable discharge after that. (2) DM (diabetes mellitus): Qualifiers: Diabetes mellitus type: type 2 Diabetes mellitus extrusion former insulin use: without extrusion former use Diabetes mellitus complication status: with circulatory complication Diabetes mellitus complication detail: with peripheral angiopathy with gangrene Qualified Code(s): E11.52 - Type 2 diabetes mellitus with diabetic peripheral angiopathy with gangrene Code(s): E11.9 - Type 2 diabetes mellitus without complications Status: Chronic Assessment and Plan: Accu-Cheks AC and HS when the patient is able to eat. Check A1c. The patient is also on Levemir continue with this. (3) Dementia: Qualifiers: Dementia type: unspecified type Dementia behavioral disturbance: without behavioral disturbance Qualified Code(s): F03.90 - Unspecified dementia without behavioral disturbance Code(s): F03.90 - Unspecified dementia without behavioral disturbance Status: Chronic Assessment and Plan: Patient is orientated to self and place typically (4) Hypothyroid: Qualifiers: Hypothyroidism type: unspecified Qualified Code(s): E03.9 - Hypothyroidism, unspecified Code(s): E03.9 - Hypothyroidism, unspecified Status: Chronic Assessment and Plan: Continue with levothyroxine. (5) Hypercholesteremia: Code(s): E78.00 - Pure hypercholesterolemia, unspecified Status: Chronic Assessment and Plan: Continue with atorvastatin. (6) Chronic pain: Code(s): G89.29 - Other chronic pain Status: Acute Assessment and Plan: Patient is on high doses of MS Contin 30 mg t.i.d.. He is also on [place] at the nursing as well. Continue gabapentin (7) HTN (hypertension), malignant: Code(s): I10 - Essential (primary) hypertension Status: Acute Assessment and Plan: Continue with metoprolol and lisinopril if blood pressure allows. Subjective Date/time seen: 01/16/20 15:25 Interval history: Date of visit 01/15. [age] year old demented white a pubic prostate carcinoma admitted with urinary retention and bladder hematoma.. Was taken to OR 01/14 for cysto and evacuation of clot. Fuentes catheter for CBI and urine is clearing. Urology wants to continue observing for neck is 48-72 hours and probable discharge after that. Exam Narrative: Exam Narrative: Blood pressure 106/46 pulse is 90 temp 37.3? Neck supple no adenopathy Lungs clear CV regular rate rhythm Abdomen is soft nontender, suprapubic catheter in place Extremities without edema distal pulses 1+ at best Neuro slow to respond and somewhat confused Objective Data Vital Signs Vital Signs: Vital Signs - 24 hr 01/15/20 16:40 01/15/20 16:55 01/15/20 17:10 Temperature 37.3 C Pulse Rate 94 92 89 Respiratory Rate 17 22 H 20 Blood Pressure 155/45 H 140/62 149/79 H Pulse Oximetry 100 100 97 01/15/20 17:25 01/15/20 17:39 01/15/20 17:50 Temperature 36.8 C 36.6 C Pulse Rate 90 87 90 Respiratory Rate 24 H 24 H 16 Blood Pressure 135/74 153/79 H 165/72 H Pulse Oximetry 100 99 98 01/15/20 18:05 01/15/20 18:35 01/15/20 19:35 Temperature 36.6 C 36.6 C 36.3 C L Pulse Rate 95 98 106 H Respiratory Rate 16 16 16 Blood Pressure 146/71 H 168/66 H 136/86 Pulse Oximetry 98 98 97 01/15/20 21:35 01/16/20 06:15 01/16/20 14:07 Temperature 37.4 C 37.3 C
[2020-01-16] MEDS: INSULIN ASPART (*BKC) 100 UNITS/ML SUB-Q (17:42)
[2020-01-16 17:50] LABS: Glucose Point of Care 205 (65-105)
[2020-01-16] MEDS: INSULIN DETEMIR 100 UNITS/ML 10 UNITS SUB-Q (20:18)
[2020-01-16 20:20] VITALS: PULSE 78
[2020-01-16] MEDS: METOPROLOL TARTRATE 12.5 MG TABLET PO (20:20)
[2020-01-16] MEDS: ATORVASTATIN 40 MG TABLET PO (20:20)
[2020-01-16 22:00] VITALS: BP 112/46; PULSE 88; RESP 16; TEMP 37.8; O2SAT 97
[2020-01-17] VITALS (11 sets, daily range): BP systolic 76–134; BP diastolic 48–74; PULSE 74–88; RESP 14–24; TEMP 36.5–38.4; O2SAT 95–98
[2020-01-17 02:14] LABS: Glucose Point of Care 154 (65-105)
[2020-01-17 06:30] LABS: Hemoglobin A1C 7.8 % (<5.7)
[2020-01-17] MEDS: GABAPENTIN 300 MG CAPSULE 600 MG PO ×2 (06:37→14:07)
[2020-01-17] MEDS: LEVOTHYROXINE SODIUM 150 MCG TABLET PO (06:37)
[2020-01-17 06:46] LABS: Blood Urea Nitrogen 10 mg/dL (9-20); Calcium 8.4 mg/dL (8.4-10.2); Carbon Dioxide 29 mmol/L (22-30); Chloride 97 mmol/L (98-107); Estimated Glomerular Filt Rate > 60; Glucose 137 mg/dL (75-110); Potassium 4.2 mmol/L (3.4-5.0); Sodium 128 mmol/L (137-145)
[2020-01-17 06:54] LABS: Basophils Absolute Auto 0.1 K/mm3 (0.0-0.1); Basophils Percent Auto 0.8 % (0.2-1.2); Eosinophils Absolute Auto 0.3 K/mm3 (0-0.3); Eosinophils Percent Auto 3.7 % (0-4.4); Hematocrit 22.8 % (42.0-52.0); Hemoglobin 7.4 g/dL (14.0-18.0); Immature Granulocyte Absolute 0.04 K/mm3 (0.00-0.031); Immature Granulocyte Percent A 0.5 % (0-0.5); Lymphocytes Absolute Auto 1.77 K/mm3 (0.9-3.2); Mean Corpuscular HGB Conc 32.5 g/dl (32-36); Mean Corpuscular Hemoglobin 26.1 pg (26-34); Mean Corpuscular Volume 80.6 fl (80-100); Mean Platelet Volume 9.8 fl (7.4-10.4); Monocytes Absolute Auto 0.9 K/mm3 (0.1-0.6); Monocytes Percent Auto 10.5 % (2.6-8.5); Neutrophils Absolute Auto 5.7 K/mm3 (1.3-6.7); Neutrophils Percent Auto 64.5 % (45.5-73.1); Platelet Count Result 478 k/mm3 (150-375); Red Blood Count 2.83 M/mm3 (4.6-6.20); Red Cell Distribution Width 13.5 % (11.5-14.5); White Blood Count 8.9 K/mm3 (4.5-10.0)
[2020-01-17] MEDS: BACLOFEN 5 MG TABLET PO (09:06)
[2020-01-17] MEDS: MULTIVITAMINS /C LUTEIN (CENTRUM SILVER) TABLET *BKC 1 TAB PO (09:06)
[2020-01-17] MEDS: ASCORBIC ACID 500 MG TABLET PO (09:06)
[2020-01-17] MEDS: ACIDOPHILUS/BULGARICUS CHEWABLE TABLET 1 TABLET PO (09:06)
[2020-01-17] MEDS: TAMSULOSIN HCL 0.4 MG CAPSULE PO (09:06)
[2020-01-17] MEDS: CLOPIDOGREL BISULFATE 75 MG TABLET PO (09:06)
[2020-01-17] MEDS: ASPIRIN 81 MG ENTERIC TABLET PO (09:07)
[2020-01-17] MEDS: ISOSORBIDE MONONITRATE 30 MG TAB.ER.24H PO (09:07)
[2020-01-17] MEDS: lisinopriL 10 MG TABLET PO (09:07)
[2020-01-17 09:29] LABS: Glucose Point of Care 149 (65-105)
[2020-01-17 13:04] LABS: Glucose Point of Care 239 (65-105)
[2020-01-17] MEDS: INSULIN ASPART (*BKC) 100 UNITS/ML SUB-Q ×2 (13:07→17:56)
--- NOTE | 2020-01-17 15:43 | PM.IMPN ---
Progress Note: A&P Assessment and Plan (1) Hematoma of bladder wall: Qualifiers: Encounter type: initial encounter Qualified Code(s): S37.22XA - Contusion of bladder, initial encounter Code(s): S37.22XA - Contusion of bladder, initial encounter Status: Acute Assessment and Plan: Dr. mayes has seen the patient and took for cystoscopy 01/14 where clot was extracted. The patient has a chronic suprapubic catheter secondary to a prostatectomy due to history of prostate cancer. Urology to continue CBI for the next 24-72 hours and probable discharge after that if bleeding subsides and stable. Hgb down to 7.4 and with lower bp will transfuse 1 U prbc. (2) DM (diabetes mellitus): Qualifiers: Diabetes mellitus type: type 2 Diabetes mellitus halfway insulin use: without halfway use Diabetes mellitus complication status: with circulatory complication Diabetes mellitus complication detail: with peripheral angiopathy with gangrene Qualified Code(s): E11.52 - Type 2 diabetes mellitus with diabetic peripheral angiopathy with gangrene Code(s): E11.9 - Type 2 diabetes mellitus without complications Status: Chronic Assessment and Plan: Accu-Cheks AC and HS when the patient is able to eat. A1c 7.8. The patient is also on Levemir continue with this. (3) Dementia: Qualifiers: Dementia type: unspecified type Dementia behavioral disturbance: without behavioral disturbance Qualified Code(s): F03.90 - Unspecified dementia without behavioral disturbance Code(s): F03.90 - Unspecified dementia without behavioral disturbance Status: Chronic Assessment and Plan: Patient is orientated to self and place typically (4) Hypothyroid: Qualifiers: Hypothyroidism type: unspecified Qualified Code(s): E03.9 - Hypothyroidism, unspecified Code(s): E03.9 - Hypothyroidism, unspecified Status: Chronic Assessment and Plan: Continue with levothyroxine. (5) Hypercholesteremia: Code(s): E78.00 - Pure hypercholesterolemia, unspecified Status: Chronic Assessment and Plan: Continue with atorvastatin. (6) Chronic pain: Code(s): G89.29 - Other chronic pain Status: Acute Assessment and Plan: Patient is on high doses of MS Contin 30 mg t.i.d.. He is also on [place] at the nursing as well. Continue gabapentin (7) HTN (hypertension), malignant: Code(s): I10 - Essential (primary) hypertension Status: Acute Assessment and Plan: Continue with metoprolol if blood pressure allows, hold lisinopril now Subjective Date/time seen: 01/17/20 15:43 Interval history: Date of visit 01/16. [age] year old demented white male with prostate carcinoma admitted with urinary retention and bladder hematoma.. Was taken to OR 01/14 for cysto and evacuation of clot. Fuentes catheter for CBI and urine is clearing but still red tinged. Urology wants to continue observing for neck is 48-72 hours and probable discharge after that if bleeding subsides and stable Exam Narrative: Exam Narrative: Blood pressure 110/50 pulse is 76 and bp downt to 76 syst this afternoon Neck supple no adenopathy Lungs clear CV regular rate rhythm Abdomen is soft nontender, suprapubic catheter in place Extremities without edema distal pulses 1+ at best Neuro slow to respond and somewhat confused but eating some with assistance Objective Data Vital Signs Vital Signs: Vital Signs - 24 hr 01/16/20 20:20 01/16/20 22:00 01/17/20 06:00 Temperature 37.8 C H 36.9 C Pulse Rate 78 88 76 Respiratory Rate 16 18 Blood Pressure 112/46 L 112/49 L Pulse Oximetry 97 96 01/17/20 14:00 Temperature 37.6 C Pulse Rate 88 Respiratory Rate 18 Blood Pressure 76/48 L Pulse Oximetry 95 Intake/Output Intake/Output: Intake & Output 01/14/20 01/15/20 01/16/20 01/17/20 23:59 23:59 23:59 23:59 Intake Total 3100 1510 330 Output
[2020-01-17 17:26] LABS: Glucose Point of Care 256 (65-105)
[2020-01-17] MEDS: SODIUM CHLORIDE 0.9% IV 250 ML 30 ML IV CONT (18:40)
[2020-01-17 23:49] LABS: Glucose Point of Care 225 (65-105)
[2020-01-18] MEDS: GABAPENTIN 300 MG CAPSULE 600 MG PO ×3 (06:03→21:08)
[2020-01-18] MEDS: LEVOTHYROXINE SODIUM 150 MCG TABLET PO (06:03)
[2020-01-18 06:44] LABS: Basophils Absolute Auto 0.1 K/mm3 (0.0-0.1); Basophils Percent Auto 0.4 % (0.2-1.2); Eosinophils Absolute Auto 0.2 K/mm3 (0-0.3); Eosinophils Percent Auto 1.3 % (0-4.4); Hematocrit 27.7 % (42.0-52.0); Hemoglobin 9.3 g/dL (14.0-18.0); Immature Granulocyte Absolute 0.04 K/mm3 (0.00-0.031); Immature Granulocyte Percent A 0.3 % (0-0.5); Lymphocytes Absolute Auto 1.28 K/mm3 (0.9-3.2); Lymphocytes Percent Auto 11.2 % (18.3-44.2); Mean Corpuscular HGB Conc 33.6 g/dl (32-36); Mean Corpuscular Hemoglobin 26.7 pg (26-34); Mean Corpuscular Volume 79.6 fl (80-100); Mean Platelet Volume 9.5 fl (7.4-10.4); Monocytes Absolute Auto 0.8 K/mm3 (0.1-0.6); Neutrophils Absolute Auto 9.2 K/mm3 (1.3-6.7); Neutrophils Percent Auto 79.8 % (45.5-73.1); Platelet Count Result 487 k/mm3 (150-375); Red Blood Count 3.48 M/mm3 (4.6-6.20); Red Cell Distribution Width 13.3 % (11.5-14.5); White Blood Count 11.5 K/mm3 (4.5-10.0)
[2020-01-18 06:47] LABS: Blood Urea Nitrogen 8 mg/dL (9-20); Calcium 8.2 mg/dL (8.4-10.2); Carbon Dioxide 28 mmol/L (22-30); Chloride 96 mmol/L (98-107); Estimated Glomerular Filt Rate > 60; Glucose 171 mg/dL (75-110); Potassium 3.8 mmol/L (3.4-5.0); Sodium 130 mmol/L (137-145)
[2020-01-18 06:48] LABS: Glucose Point of Care 170 (65-105)
[2020-01-18 07:39] VITALS: BP 130/85; PULSE 78; RESP 18; TEMP 37.5; O2SAT 98
[2020-01-18 09:14] LABS: Glucose Point of Care 173 (65-105)
[2020-01-18] MEDS: ASCORBIC ACID 500 MG TABLET PO (09:23)
[2020-01-18] MEDS: MULTIVITAMINS /C LUTEIN (CENTRUM SILVER) TABLET *BKC 1 TAB PO (09:24)
[2020-01-18] MEDS: BACLOFEN 5 MG TABLET PO ×2 (09:24→21:09)
[2020-01-18] MEDS: CLOPIDOGREL BISULFATE 75 MG TABLET PO (09:24)
[2020-01-18] MEDS: TAMSULOSIN HCL 0.4 MG CAPSULE PO (09:24)
[2020-01-18] MEDS: ASPIRIN 81 MG ENTERIC TABLET PO (09:24)
[2020-01-18] MEDS: ACIDOPHILUS/BULGARICUS CHEWABLE TABLET 1 TABLET PO ×2 (09:25→21:08)
[2020-01-18] MEDS: ISOSORBIDE MONONITRATE 30 MG TAB.ER.24H PO (09:25)
[2020-01-18 12:44] LABS: Glucose Point of Care 245 (65-105)
[2020-01-18] MEDS: INSULIN ASPART (*BKC) 100 UNITS/ML SUB-Q (12:51)
--- NOTE | 2020-01-18 14:39 | PM.IMPN ---
Progress Note: A&P Assessment and Plan (1) Hematoma of bladder wall: Qualifiers: Encounter type: initial encounter Qualified Code(s): S37.22XA - Contusion of bladder, initial encounter Code(s): S37.22XA - Contusion of bladder, initial encounter Status: Acute Assessment and Plan: Dr. mayes has seen the patient and took for cystoscopy 01/14 where clot was extracted. The patient has a chronic suprapubic catheter secondary to a prostatectomy due to history of prostate cancer. Urology has stopped CBI and probable discharge after that if bleeding subsides and stable. Hgb up to 9.3 after 1 Unit prbc. (2) DM (diabetes mellitus): Qualifiers: Diabetes mellitus type: type 2 Diabetes mellitus residential insulin use: without residential use Diabetes mellitus complication status: with circulatory complication Diabetes mellitus complication detail: with peripheral angiopathy with gangrene Qualified Code(s): E11.52 - Type 2 diabetes mellitus with diabetic peripheral angiopathy with gangrene Code(s): E11.9 - Type 2 diabetes mellitus without complications Status: Chronic Assessment and Plan: Accu-Cheks AC and HS when the patient is able to eat. A1c 7.8. The patient is also on Levemir continue with this. FBS 178 (3) Dementia: Qualifiers: Dementia type: unspecified type Dementia behavioral disturbance: without behavioral disturbance Qualified Code(s): F03.90 - Unspecified dementia without behavioral disturbance Code(s): F03.90 - Unspecified dementia without behavioral disturbance Status: Chronic Assessment and Plan: Patient is orientated to self and place typically (4) Hypothyroid: Qualifiers: Hypothyroidism type: unspecified Qualified Code(s): E03.9 - Hypothyroidism, unspecified Code(s): E03.9 - Hypothyroidism, unspecified Status: Chronic Assessment and Plan: Continue with levothyroxine. (5) Hypercholesteremia: Code(s): E78.00 - Pure hypercholesterolemia, unspecified Status: Chronic Assessment and Plan: Continue with atorvastatin. (6) Chronic pain: Code(s): G89.29 - Other chronic pain Status: Acute Assessment and Plan: Patient is on high doses of MS Contin 30 mg t.i.d.. He is also on [place] at the nursing as well. Continue gabapentin (7) HTN (hypertension), malignant: Code(s): I10 - Essential (primary) hypertension Status: Acute Assessment and Plan: Continue with metoprolol if blood pressure allows, hold lisinopril now and possibly restart 01/18 Subjective Date/time seen: 01/18/20 14:39 Interval history: Date of visit 01/17. [age] year old demented white male with prostate carcinoma admitted with urinary retention and bladder hematoma.. Was taken to OR 01/14 for cysto and evacuation of clot. Fuentes catheter for CBI and urine cleared and CBI now off. Urology wants to continue observing for next 24 hours and probable discharge after that if bleeding subsides and stable Exam Narrative: Exam Narrative: Blood pressure 130/80 pulse is 76 temp 37.5? with T-max is 38.4 Neck supple no adenopathy Lungs clear CV regular rate rhythm Abdomen is soft nontender, suprapubic catheter in place Extremities without edema distal pulses 1+ at best Neuro slow to respond and somewhat confused but eating some with assistance Objective Data Vital Signs Vital Signs: Vital Signs - 24 hr 01/17/20 17:30 01/17/20 17:51 01/17/20 18:20 Temperature 38.4 C H 36.5 C Pulse Rate 86 Respiratory Rate Blood Pressure 133/67 Pulse Oximetry 01/17/20 18:35 01/17/20 18:55 01/17/20 19:55 Temperature 36.7 C 36.8 C 37.8 C H Pulse Rate 82 84 77 Respiratory Rate 24 H 24 H 14 Blood Pressure 131/60 116/58 L 115/68 Pulse Oximetry 97 98 97 01/17/20 20:00 01/17/20 20:55 01/17/20 21:10 Temperature 37.4 C 37.4 C Pulse Rate 76 74 76 Respiratory Rate 16 16 16 Blo
[2020-01-18 14:45] VITALS: BP 119/55; PULSE 74; RESP 16; TEMP 37.2; O2SAT 98
[2020-01-18 18:08] LABS: Glucose Point of Care 198 (65-105)
--- NOTE | 2020-01-18 18:28 | WPDUROPN2 ---
Progress Note: A&P Assessment and Plan (1) Suprapubic catheter: Code(s): Z93.59 - Other cystostomy status Status: Chronic (2) Gross hematuria: Code(s): R31.0 - Gross hematuria Status: Acute Assessment and Plan: Cystoscopy, clot evacuation 01/15/20 (with evaluation of gross hematuria). Bilat. hydronephrosis - new since last CT here ~1-year ago. 01/18/20: - Resolution of hydronephrosis on US 01/16/20 - Urine clear with CBI off x 24 hours - please remove urethral catheter - continue iindwelling suprapubic catheter and resumption of home health monthly changes. - urine culture- pending Subjective Subjective Date/Time Seen: 01/18/20 18:28 no complaints Exam Const: General: no acute distress Resp: Effort & Inspection: normal respiratory effort : Other: soft Urinary Catheter: Urinary Catheter: patent and draining (SP with clear urine, Urethral catheter capped) Objective Data Vital Signs Vital Signs: Vital Signs - 24 hr 01/17/20 18:35 01/17/20 18:55 01/17/20 19:55 Temperature 36.7 C 36.8 C 37.8 C H Pulse Rate 82 84 77 Respiratory Rate 24 H 24 H 14 Blood Pressure 131/60 116/58 L 115/68 Pulse Oximetry 97 98 97 01/17/20 20:00 01/17/20 20:55 01/17/20 21:10 Temperature 37.4 C 37.4 C Pulse Rate 76 74 76 Respiratory Rate 16 16 16 Blood Pressure 133/70 134/74 Pulse Oximetry 98 97 98 01/18/20 07:39 01/18/20 14:45 Temperature 37.5 C 37.2 C Pulse Rate 78 74 Respiratory Rate 18 16 Blood Pressure 130/85 119/55 L Pulse Oximetry 98 98 Intake/Output Intake/Output: Intake & Output 01/15/20 01/16/20 01/17/20 01/18/20 23:59 23:59 23:59 23:59 Intake Total 3100 1510 713 800 Output Total 4465 241 1575 1900 Balance -1323 609 -558 -5172 Meds/Results Medications: Active Medications Generic Name Dose Route Start Last Admin Trade Name Freq PRN Reason Stop Dose Admin Acetaminophen 650 mg 01/15/20 19:29 Tylenol Tablet PO ONCE PRN Pain (Scale Score 1-3) Hydrocodone Bitart/Acetaminophen 1 tab 01/15/20 19:29 [place] 5-325 Mg PO Q6H PRN Breakthrough Pain Alprazolam 0.125 mg 01/15/20 21:00 01/18/20 05:47 Xanax PO Not Given HS [facility] Ascorbic Acid 500 mg 01/16/20 09:00 01/18/20 09:23 Vitamin C PO 500 mg DAILY JES Administration Aspirin 81 mg 01/16/20 09:00 01/18/20 09:24 Aspirin Ec PO 81 mg DAILY [facility] Administration Atorvastatin Calcium 40 mg 01/15/20 21:00 01/18/20 05:48 Lipitor PO Not Given HS [facility] Baclofen 5 mg 01/15/20 21:00 01/18/20 09:24 Lioresal Po PO 5 mg Q12HR JES Administration Clopidogrel Bisulfate 75 mg 01/16/20 09:00 01/18/20 09:24 Plavix PO 75 mg DAILY [facility] Administration Dextrose 12.5 gm 01/15/20 13:04 Dextrose 50% Syringe IV PUSH PRN PRN Hypoglycemia Protocol Ergocalciferol 50,000 unit 01/19/20 09:00 Drisdol PO [id number] [facility] Gabapentin 600 mg 01/15/20 22:00 01/18/20 13:46 Neurontin PO 600 mg Q8HR [facility] Administration Glucagon 1 mg 01/15/20 13:04 Glucagon For Inj IM PRN PRN Hypoglycemia Protocol Glucose 15 gm 01/15/20 13:04 Glutose 15 PO PRN PRN Hypoglycemia Protocol Dextrose 1,000 mls @ 100 mls/hr 01/15/20 13:04 Dextrose 5% 1,000 Ml IVPB PRN PRN Hypoglycemia Protocol Insulin Aspart 2 - 5 units 01/15/20 17:00 01/18/20 17:15 Novolog SUB-Q Not Given TIDWM [facility] Protocol Insulin Detemir 10 units 01/15/20 21:00 01/18/20 05:48 Levemir SUB-Q 02/14/20 21:01 Not Given HS [facility] Isosorbide Mononitrate 30 mg 01/16/20 09:00 01/18/20 09:25 Imdur PO 30 mg DAILY [facility] Administration Lactobacillus Acidophilus 1 tablet 01/15/20 21:00 01/18/20 09:25 Lactinex Chewable Tablet PO 1 tablet Q12HR JES Administration Levothyroxine Sodium 150 mcg 01/16/20 06:30 01/18/20 06:03 Synthroid PO 150 mcg DAILY@0630
[2020-01-18 20:00] VITALS: PULSE 74; RESP 16; O2SAT 98
[2020-01-18 21:08] VITALS: PULSE 78
[2020-01-18] MEDS: ATORVASTATIN 40 MG TABLET PO (21:08)
[2020-01-18] MEDS: METOPROLOL TARTRATE 12.5 MG TABLET PO (21:08)
[2020-01-18] MEDS: INSULIN DETEMIR 100 UNITS/ML 10 UNITS SUB-Q (21:31)
[2020-01-18 21:58] LABS: Glucose Point of Care 223 (65-105)
[2020-01-18 22:00] VITALS: BP 143/56; PULSE 75; RESP 18; TEMP 37.1; O2SAT 100
[2020-01-19 06:00] VITALS: BP 148/74; PULSE 62; RESP 18; TEMP 36.9; O2SAT 100
[2020-01-19] MEDS: GABAPENTIN 300 MG CAPSULE 600 MG PO ×2 (06:04→13:22)
[2020-01-19] MEDS: LEVOTHYROXINE SODIUM 150 MCG TABLET PO (06:04)
--- NOTE | 2020-01-19 07:02 | WPDUROPN2 ---
Progress Note: A&P Assessment and Plan (1) Suprapubic catheter: Code(s): Z93.59 - Other cystostomy status Status: Chronic (2) Gross hematuria: Code(s): R31.0 - Gross hematuria Status: Acute Assessment and Plan: Cystoscopy, clot evacuation 01/15/20 (with evaluation of gross hematuria). Bilat. hydronephrosis - new since last CT here ~1-year ago. 01/18/20: - Resolution of hydronephrosis on US 01/16/20 - Urine clear with CBI off x 24 hours - please remove urethral catheter - continue iindwelling suprapubic catheter and resumption of home health monthly changes. - urine culture- pending 01/19/20 Urine remains clear. Back to just a s/p catheter - as before. Urine culture - non-specific growth. Home on suppressive Keflex 500mg daily. Resume monthly s/p changes as before. Pt. to f/u with his lifelong urologists at [facility]. Subjective Subjective Date/Time Seen: 01/19/20 07:02 Urine remains clear Review of Systems Review of Systems: ROS unobtainable: Yes unobtainable due to mental status Exam Const: General: no acute distress Resp: Effort & Inspection: normal respiratory effort GI: Inspection: non-distended GI Palp: No abdominal tenderness and No Guarding due to palpation present (GI) Auscultation: normal bowel sounds Urinary Catheter: Urinary Catheter: patent and draining and urine clear Objective Data Vital Signs Vital Signs: Vital Signs - 24 hr 01/18/20 07:39 01/18/20 14:45 01/18/20 20:00 Temperature 99.5 F 98.9 F Pulse Rate 78 74 74 Respiratory Rate 18 16 16 Blood Pressure 130/85 119/55 L Pulse Oximetry 98 98 98 01/18/20 21:08 01/18/20 22:00 01/19/20 06:00 Temperature 98.7 F 98.4 F Pulse Rate 78 75 62 Respiratory Rate 18 18 Blood Pressure 143/56 H 148/74 H Pulse Oximetry 100 100 Intake/Output Intake/Output: Intake & Output 01/16/20 01/17/20 01/18/20 01/19/20 23:59 23:59 23:59 23:59 Intake Total 2760 104 6432 140 Output Total 905 1575 1900 700 Balance 605 -862 -900 -560 Meds/Results Medications: Active Medications Generic Name Dose Route Start Last Admin Trade Name Freq PRN Reason Stop Dose Admin Acetaminophen 650 mg 01/15/20 19:29 Tylenol Tablet PO ONCE PRN Pain (Scale Score 1-3) Hydrocodone Bitart/Acetaminophen 1 tab 01/15/20 19:29 [place] 5-325 Mg PO Q6H PRN Breakthrough Pain Alprazolam 0.125 mg 01/15/20 21:00 01/18/20 21:09 Xanax PO 0.125 mg HS JES Administration Ascorbic Acid 500 mg 01/16/20 09:00 01/18/20 09:23 Vitamin C PO 500 mg DAILY JES Administration Aspirin 81 mg 01/16/20 09:00 01/18/20 09:24 Aspirin Ec PO 81 mg DAILY [facility] Administration Atorvastatin Calcium 40 mg 01/15/20 21:00 01/18/20 21:08 Lipitor PO 40 mg HS [facility] Administration Baclofen 5 mg 01/15/20 21:00 01/18/20 21:09 Lioresal Po PO 5 mg Q12HR JES Administration Clopidogrel Bisulfate 75 mg 01/16/20 09:00 01/18/20 09:24 Plavix PO 75 mg DAILY JES Administration Dextrose 12.5 gm 01/15/20 13:04 Dextrose 50% Syringe IV PUSH PRN PRN Hypoglycemia Protocol Ergocalciferol 50,000 unit 01/19/20 09:00 Drisdol PO [id number] JES Gabapentin 600 mg 01/15/20 22:00 01/19/20 06:04 Neurontin PO 600 mg Q8HR JES Administration Glucagon 1 mg 01/15/20 13:04 Glucagon For Inj IM PRN PRN Hypoglycemia Protocol Glucose 15 gm 01/15/20 13:04 Glutose 15 PO PRN PRN Hypoglycemia Protocol Dextrose 1,000 mls @ 100 mls/hr 01/15/20 13:04 Dextrose 5% 1,000 Ml IVPB PRN PRN Hypoglycemia Protocol Insulin Aspart 2 - 5 units 01/15/20 17:00 01/18/20 17:15 Novolog SUB-Q Not Given TIDWM [facility] Protocol Insulin Detemir 10 units 01/15/20 21:00 01/18/20 21:31 Levemir SUB-Q 02/14/20 21:01 10 units HS JES Administration Isosorbide Mononitrate 30 mg 01/16/20 09:00
[2020-01-19] MEDS: ASPIRIN 81 MG ENTERIC TABLET PO (08:54)
[2020-01-19] MEDS: ASCORBIC ACID 500 MG TABLET PO (08:54)
[2020-01-19] MEDS: MULTIVITAMINS /C LUTEIN (CENTRUM SILVER) TABLET *BKC 1 TAB PO (08:54)
[2020-01-19] MEDS: ACIDOPHILUS/BULGARICUS CHEWABLE TABLET 1 TABLET PO (08:54)
[2020-01-19] MEDS: ERGOCALCIFEROL 50,000 UNIT CAPSULE 50000 UNITS PO (08:54)
[2020-01-19] MEDS: ISOSORBIDE MONONITRATE 30 MG TAB.ER.24H PO (08:54)
[2020-01-19] MEDS: CLOPIDOGREL BISULFATE 75 MG TABLET PO (08:55)
[2020-01-19] MEDS: TAMSULOSIN HCL 0.4 MG CAPSULE PO (08:55)
[2020-01-19] MEDS: BACLOFEN 5 MG TABLET PO (08:55)
[2020-01-19 09:28] LABS: Glucose Point of Care 96 (65-105)
--- NOTE | 2020-01-19 11:19 | PM.IMPN ---
Progress Note: A&P Assessment and Plan (1) Hematoma of bladder wall: Qualifiers: Encounter type: initial encounter Qualified Code(s): S37.22XA - Contusion of bladder, initial encounter Code(s): S37.22XA - Contusion of bladder, initial encounter Status: Acute Assessment and Plan: Dr. mayes has seen the patient and took for cystoscopy 01/14 where clot was extracted. The patient has a chronic suprapubic catheter secondary to a prostatectomy due to history of prostate cancer. Urology has stopped CBI and uretral cather removed 01/17. Hgb up to 9.3 after 1 Unit prbc.01/08 IF BC negative d/c today (2) DM (diabetes mellitus): Qualifiers: Diabetes mellitus type: type 2 Diabetes mellitus assisted insulin use: without assisted use Diabetes mellitus complication status: with circulatory complication Diabetes mellitus complication detail: with peripheral angiopathy with gangrene Qualified Code(s): E11.52 - Type 2 diabetes mellitus with diabetic peripheral angiopathy with gangrene Code(s): E11.9 - Type 2 diabetes mellitus without complications Status: Chronic Assessment and Plan: Accu-Cheks AC and HS when the patient is able to eat. A1c 7.8. The patient is also on Levemir continue with this. FBS 96 today (3) Dementia: Qualifiers: Dementia type: unspecified type Dementia behavioral disturbance: without behavioral disturbance Qualified Code(s): F03.90 - Unspecified dementia without behavioral disturbance Code(s): F03.90 - Unspecified dementia without behavioral disturbance Status: Chronic Assessment and Plan: Patient is orientated to self and place typically (4) Hypothyroid: Qualifiers: Hypothyroidism type: unspecified Qualified Code(s): E03.9 - Hypothyroidism, unspecified Code(s): E03.9 - Hypothyroidism, unspecified Status: Chronic Assessment and Plan: Continue with levothyroxine. (5) Hypercholesteremia: Code(s): E78.00 - Pure hypercholesterolemia, unspecified Status: Chronic Assessment and Plan: Continue with atorvastatin. (6) Chronic pain: Code(s): G89.29 - Other chronic pain Status: Acute Assessment and Plan: Patient is on high doses of MS Contin 30 mg t.i.d.. He is also on [place] at the nursing as well. Continue gabapentin (7) HTN (hypertension), malignant: Code(s): I10 - Essential (primary) hypertension Status: Acute Assessment and Plan: Continue with metoprolol and as bp has risen will restart lisinopril now 10 qd Subjective Date/time seen: 01/19/20 11:19 Interval history: Date of visit 01/18. [age] year old demented white male with prostate carcinoma admitted with urinary retention and bladder hematoma.. Was taken to OR 01/14 for cysto and evacuation of clot. Fuentes catheter for CBI and urine cleared and CBI now off. No further bleeding since urethral catheter removed and CBI discontinued. Exam Narrative: Exam Narrative: Blood pressure 148/74 pulse is 62 temp 36.7 Neck supple no adenopathy Lungs clear CV regular rate rhythm Abdomen is soft nontender, suprapubic catheter in place Extremities without edema distal pulses 1+ at best Neuro slow to respond and somewhat confused but eating some with assistance Objective Data Vital Signs Vital Signs: Vital Signs - 24 hr 01/18/20 14:45 01/18/20 20:00 01/18/20 21:08 Temperature 37.2 C Pulse Rate 74 74 78 Respiratory Rate 16 16 Blood Pressure 119/55 L Pulse Oximetry 98 98 01/18/20 22:00 01/19/20 06:00 Temperature 37.1 C 36.9 C Pulse Rate 75 62 Respiratory Rate 18 18 Blood Pressure 143/56 H 148/74 H Pulse Oximetry 100 100 Intake/Output Intake/Output: Intake & Output 01/16/20 01/17/20 01/18/20 01/19/20 23:59 23:59 23:59 23:59 Intake Total 1024 409 4416 200 Output Total 905 1575 1900 700 Balance 605 -862 -900 -500 Meds/Results Medications:
[2020-01-19] MEDS: lisinopriL 10 MG TABLET PO (13:19)
[2020-01-19 13:31] LABS: Glucose Point of Care 120 (65-105)
[2020-01-19 14:27] VITALS: BP 162/66; PULSE 71; RESP 16; TEMP 36.7; O2SAT 100
--- NOTE | 2020-01-26 07:17 | PM.DS ---
DS: Diagnosis Admitting Diagnosis Admitting Diagnosis: Contusion of bladder, initial encounter Discharge Diagnosis (1) Hematoma of bladder wall: Qualifiers: Encounter type: initial encounter Qualified Code(s): S37.22XA - Contusion of bladder, initial encounter Code(s): S37.22XA - Contusion of bladder, initial encounter Status: Acute Assessment and Plan: Dr. mayes saw the patient and took for cystoscopy 01/14 where clot was extracted. The patient has a chronic suprapubic catheter secondary to a prostatectomy due to history of prostate cancer. Urology stopped CBI and urethral catheterr removed 01/17. Hgb up to 9.3 after 1 Unit prbc.01/08 BC negative and urine contaminant with low colony count of multiple organisms so d/kin today 01/18 urology suggested keflex 500 daily for prophylaxis (2) DM (diabetes mellitus): Qualifiers: Diabetes mellitus type: type 2 Diabetes mellitus detention insulin use: without rn long term care use Diabetes mellitus complication status: with circulatory complication Diabetes mellitus complication detail: with peripheral angiopathy with gangrene Qualified Code(s): E11.52 - Type 2 diabetes mellitus with diabetic peripheral angiopathy with gangrene Code(s): E11.9 - Type 2 diabetes mellitus without complications Status: Chronic Assessment and Plan: Accu-Cheks AC and HS when the patient was able to eat. A1c 7.8. The patient is also on Levemir continue with this. FBS 96 day of d/c continued his levemir on d/c (3) Dementia: Qualifiers: Dementia type: unspecified type Dementia behavioral disturbance: without behavioral disturbance Qualified Code(s): F03.90 - Unspecified dementia without behavioral disturbance Code(s): F03.90 - Unspecified dementia without behavioral disturbance Status: Chronic Assessment and Plan: Patient is orientated to self and place typically (4) Hypothyroid: Qualifiers: Hypothyroidism type: unspecified Qualified Code(s): E03.9 - Hypothyroidism, unspecified Code(s): E03.9 - Hypothyroidism, unspecified Status: Chronic Assessment and Plan: Continue with levothyroxine. (5) Hypercholesteremia: Code(s): E78.00 - Pure hypercholesterolemia, unspecified Status: Chronic Assessment and Plan: Continue with atorvastatin. (6) Chronic pain: Code(s): G89.29 - Other chronic pain Status: Acute Assessment and Plan: Patient is on high doses of MS Contin 30 mg t.i.d.. He is also on [place] at the nursing as well. Continue gabapentin (7) HTN (hypertension), malignant: Code(s): I10 - Essential (primary) hypertension Status: Acute Assessment and Plan: Continue with metoprolol and as bp has risen restarted lisinopril now 10 qd that was initially held DS: Summary Hospital Course Hospital Course: 69-year-old demented white male with multiple medical problems who is admitted with bladder hematoma. He has chronic indwelling suprapubic [place] from previous treatment of prostate cancer. he was taken to the OR by Urology where clot was evacuated and CBI instituted. Bleeding subsided. CV I was 36-48 hours prior to discharge with no obvious bleeding and hematoma remaining stable at 9.3. he was afebrile 36 hours prior to discharge and blood cultures were no growth. Urine grew only multiple organisms small colony counts compatible with contamination. His blood pressure was initially the low but was given 1 unit of packed cells and at time of discharge she systolic pressure is 148. He will be discharged back to the [facility] and daughter has decided to inter him into the hospice program there he had a drainage from a chronic leg wound which was clean. It had been cultured and grew staph and Pseudomonas which we thought was colonization and treatment continued with local care Time Spent with Patient Time attestation: Total time s
== END 2020-01-19 16:35 | DRG 699 ==
LOC: ANHED 12:05 → ANH3MEDSUR 14:39
PROVIDERS: Nurse Practitioner; Urology; Admitting Provider Internal Medicine; Emergency Provider Emergency Medicine; PCP Family Medicine; Visit Provider Internal Medicine
PROC: 0TCB8ZZ Extirpation of Matter from Bladder, Via Natural or Artificial Opening Endoscopic (ICD-10-PCS; CPT 52001; principal; 2020-01-15 15:30)
DX: T83.83XA Hemorrhage due to genitourinary prosthetic devices, implants and grafts, initial encounter (principal); S37.22XA Contusion of bladder, initial encounter; N13.39 Other hydronephrosis; L97.528 Non-pressure chronic ulcer of other part of left foot with other specified severity; L97.429 Non-pressure chronic ulcer of left heel and midfoot with unspecified severity; J98.11 Atelectasis; E11.621 Type 2 diabetes mellitus with foot ulcer; R31.0 Gross hematuria; R33.9 Retention of urine, unspecified; I11.0 Hypertensive heart disease with heart failure; I50.9 Heart failure, unspecified; E11.42 Type 2 diabetes mellitus with diabetic polyneuropathy; E11.51 Type 2 diabetes mellitus with diabetic peripheral angiopathy without gangrene; F03.90 Unspecified dementia, unspecified severity, without behavioral disturbance, psychotic disturbance, mood disturbance, and anxiety; E03.9 Hypothyroidism, unspecified; E78.00 Pure hypercholesterolemia, unspecified; K21.9 Gastro-esophageal reflux disease without esophagitis; G89.29 Other chronic pain; F41.8 Other specified anxiety disorders; I25.10 Atherosclerotic heart disease of native coronary artery without angina pectoris; G47.30 Sleep apnea, unspecified; M19.90 Unspecified osteoarthritis, unspecified site; K57.90 Diverticulosis of intestine, part unspecified, without perforation or abscess without bleeding; Z66 Do not resuscitate; Z93.59 Other cystostomy status; Z85.46 Personal history of malignant neoplasm of prostate; Z87.891 Personal history of nicotine dependence; Z95.1 Presence of aortocoronary bypass graft; Z95.5 Presence of coronary angioplasty implant and graft; Z85.820 Personal history of malignant melanoma of skin; Z87.442 Personal history of urinary calculi; Z79.02 Long term (current) use of antithrombotics/antiplatelets
CPT/HCPCS: 36415; 36430; 51700; 74176; 76775; 80048; 80053; 83036; 83735; 84439; 84443; 84480; 85025; 86850; 86900; 86901; 86920; 87040; 87070; 87077; 87086; 87088; 87186; 87205; 96361; 96365; 96375; 99285; A9270; C1726; C1769; G0378; J0131; J0690; J1815; J2405; J2704; J3010; J7050; J7120; P9016